=== PATIENT | male | born 1960 | race Two or more races ===

== ENCOUNTER 2017-05-02 16:08 | Inpatient (IN) | payer BC ==
[2017-05-02] MEDS ORDERED: Dexamethasone IV* 4 MG/ML 1 ML (4 MG) IV SLOW PU ONE (17:09)
[2017-05-02] MEDS ORDERED: Metoclopramide IV* 5 MG/ML 2 ML VIAL IV SLOW PU ONE (17:09)
[2017-05-02 17:23] LABS: Hematocrit 47 % (42-52); Hemoglobin 16.4 g/dl (14.0-18.0); Mean Corpuscular HGB Conc 35 g/dl (31-36); Mean Corpuscular Hemoglobin 32 pg (27-31); Mean Corpuscular Volume 92 fL (80-94); Mean Platelet Volume 7 um3 (7.4-10.4); Red Blood Count 5.13 10^6/ul (4.0-5.4); Red Cell Distribution Width 14 % (10.5-15); White Blood Count 8.5 10^3/ul (3.5-10.8)
[2017-05-02 17:46] LABS: BUN/Creatinine Ratio 17.2 (8-20); Calcium 9.9 mg/dL (8.6-10.3); EGFR African American 107.3 (>60); EGFR Non-African American 83.5 (>60); Potassium 3.2 mmol/L (3.5-5.0)
[2017-05-02] MEDS ORDERED: traMADol TAB* 50 MG PO PRN (18:31)
[2017-05-02] MEDS ORDERED: Ondansetron INJ* 2 MG/ML VIAL IV PRN (18:44)
[2017-05-02] MEDS ORDERED: hydrALAZINE IV* 20 MG/ML VIAL IV SLOW PU PRN (18:48)
--- NOTE | 2017-05-02 19:06 | RAD ---
Indication: Brain mass. CT of the brain was performed without IV contrast. Ventricular structures are shifted towards the left. Extensive vasogenic edema arising from a mass in the right temporal lobe is noted. This mass in the right frontal temporal lobe which was described previously as a hemorrhagic lesion and demonstrates a fluid fluid level with high density material in the dependent portion is noted. Extensive vasogenic edema is noted. Previous MRI demonstrates multiple enhancing lesions in the cerebellum well. Mastoid air cells and paranasal sinuses are unremarkable. IMPRESSION: Large ring-enhancing lesion with low density fluid fluid level in the right temporoparietal lobe which was present previously. Midline shift towards the left is noted extensive vasogenic edema. On the prior MRI multiple enhancing lesions are present suggestive of metastatic disease. Infectious etiology is considered less likely. There is likely hemorrhage with fluid/fluid level in the right temporal frontal lobe lesion.
[2017-05-02] MEDS ORDERED: Potassium Chlor TAB* 20 MEQ TAB.ER PO ONE (19:44)
[2017-05-02 19:55] LABS: Albumin 4.5 g/dL (3.2-5.2); Globulin 3.4 g/dL (2-4); Total Bilirubin 1.2 mg/dL (0.2-1.0); Total Protein 7.9 g/dL (6.4-8.9)
[2017-05-02] MEDS ORDERED: Iohexol 300* (CONTRAST) 10 ML SDV IV ONE (20:06)
--- NOTE | 2017-05-02 20:43 | RAD ---
Indication: Brain metastases lesion, evaluate for primary cancer. Contrast: Administered 119.0 ml of OMNIPAQUE 300 mg/ml CT of the chest, abdomen and pelvis was performed after oral and IV contrast administration. Coronal and sagittal reconstructed images were obtained. The inferior thyroid lobes are unremarkable. No mediastinal or hilar adenopathy is noted. Heart demonstrates no pericardial effusion. The trachea and major bronchi demonstrates an endobronchial lesion in the right lower lobe bronchus. There is suggestion of a mass encroaching into the right lower lobe bronchus measuring approximately 2.7 cm. Atelectasis of the right lower lobe is also present. There are small nodules present in the right upper lobe at least 2 lesions measuring 5 mm and 4 mm. Nodule in the right middle lobe measuring 4 mm. Other minute middle lobe lesion measures 5 mm. Small multiple lingula lesions are noted measuring at least 4 mm. Other smaller 2-3 mm lesions are noted in the left lower lobe. Largest lesion in the left lower lobe measures approximately 5 mm. These lesions are suspicious for metastatic disease. No significant mediastinal or hilar adenopathy is noted. The heart demonstrates no pericardial effusion. No axillary adenopathy is noted. CT of the abdomen and pelvis was performed after oral and IV contrast administration. Liver is normal in size. No focal lesions or intrahepatic duct dilatation is noted. The gallbladder demonstrates no calcified gallstones. No pericholecystic fluid or wall thickening is identified. The spleen is normal in size. Common duct is not dilated. No adrenal lesions are noted. The kidneys demonstrate symmetric nephrograms without focal lesions. No retroperitoneal lymphadenopathy is noted. The pancreas demonstrates no mass or pancreatic duct dilatation. No dilated loops of bowel are noted. Aorta demonstrates atherosclerosis without evidence of retroperitoneal adenopathy. No aneurysmal dilatation is noted. CT of the pelvis demonstrates no evidence of bowel obstruction. No pelvic adenopathy is noted. Urinary bladder is otherwise unremarkable. The bony structures demonstrates increased density in the T12 vertebral bodies suspicious for metastatic disease. IMPRESSION: CT OF THE CHEST DEMONSTRATES A CENTRAL RIGHT LOWER LOBE MASS NARROWING THE RIGHT LOWER LOBE BRONCHUS WITH POSTOBSTRUCTIVE ATELECTASIS. ADDITIONALLY THERE ARE MULTIPLE SMALL 2 TO 3 MM NODULES IN BOTH LUNG BASES WITH SEVERAL NODULES MEASURING UP TO 5 MM. THESE ARE SUSPICIOUS FOR METASTATIC DISEASE. CT OF THE ABDOMEN AND PELVIS DEMONSTRATES NO EVIDENCE OF ABNORMAL MASSES OR FLUID COLLECTION ALTHOUGH THERE IS SCLEROSIS OF THE T12 VERTEBRA FOR WHICH METASTATIC DISEASE CANNOT BE EXCLUDED.
[2017-05-02] MEDS ORDERED: Labetalol IV* 5 MG/ML 20 ML VIAL IV PUSH PRN (20:55)
[2017-05-02] MEDS: Metoprolol Succinate XL TAB* 100 MG PO SCH (20:59)
[2017-05-02] MEDS: traMADol TAB* 50 MG PO PRN (21:28)
--- NOTE | 2017-05-03 00:18 | HP ---
CC: Dr. Connolly* MEDICINE HISTORY AND PHYSICAL: DATE OF ADMISSION: 05/02/17 PROVIDER: Nati Hastings NP ATTENDING PHYSICIAN: Dr. Obinna Drake * (as dictated by Nati Hastings NP) CONSULTING PHYSICIANS: 1. Dr. Yue Vargas, Oncology. 2. Dr. Arnold Dobson, Neurosurgery. PRIMARY CARE PROVIDER: Dr. Connolly. CHIEF COMPLAINT: Referred to ED for MRI with concern for brain lesion. HISTORY OF PRESENT ILLNESS: Mr. Wills is a 57-year-old male patient who is referred to the ER after an outpatient MRI done on 05/01/17, showed concern for multiple enhancing lesions of the cerebral hemispheres bilaterally and of the cerebellum as well as within the choroid plexus on the left. It appears it was most suggestive of metastatic disease. The patient has accompanying vasogenic edema with minimal subfalcine shift and a partially hemorrhagic lesion. Mr. Wills was initially sent for the MRI by Dr. Rodriguez, who is an trash collector at [place], [place]. The patient reportedly was in [place] during the month of March for approximately 2 weeks. When he came home from [place], he noticed that he had a bubble in the right lateral aspect of his eye, he went to see Dr. Grimaldo here in [place], who was able to examine the patient and then referred him to an trash collector for further evaluation. Dr. Rodriguez saw the patient and ordered blood work as well as an MRI. The results are called in to the patient today and he was sent to his PCP's office at [place], who then referred him to the ER. The patient has a conglomeration of symptoms, which includes headache most significantly. He has noticed to have the headache for approximately 3 to 4 weeks now. The headache starts behind the right eye, it is intermittent, is described as shooting pain along the right side of the head. The pain worsens when the patient is lying down. He has been treating the pain with tramadol and ibuprofen. Here in the ER, the patient reports some mild head pain that has returned. The patient also endorses generalized fatigue over the past several months as well as complains of right knee pain that comes and goes that he relates back to his work. The patient works at a [employer] and stands on his legs for a good portion of the day. The patient does endorse dizziness and generalized weakness. On occasion, he denies any recent fever, chills, cold or flu like symptoms. He denies any chest pain, edema, trouble breathing, cough. He denies abdominal pain, nausea, vomiting, diarrhea. He denies any focal weakness, although he does have loss of visual field to the right periphery. Of note, the patient primarily speaks Hungarian, although he does understand some Telugu. The patient's son has helped to translate per the patient's request. PAST MEDICAL HISTORY: Includes: 1. Hypertension. 2. Hyperlipidemia. HOME MEDICATIONS: 1. Tramadol 50 mg q.6 hours p.r.n. 2. Hydrochlorothiazide 12.5 mg daily. 3. Atorvastatin 40 mg daily. 4. Amlodipine 10 mg daily. 5. Metoprolol succinate XL 100 mg b.i.d. 6. Lansoprazole 30 mg daily. ALLERGIES: No known allergies. FAMILY HISTORY: The patient reports a familial history of high cholesterol. He has 2 maternal aunts with a history of stomach cancer as well as a sister with stomach cancer. He reports multiple family members with liver cirrhosis and liver issues as well as an uncle with lung cancer. SOCIAL HISTORY: The patient is a former smoker. Family reports almost daily alcohol use. The patient may have a few beers a day. He works at [employer]. He is . He has children. His dfqtfiyt-wr-ghi, Debra Wills, is his healthcare proxy. REVIEW OF SYSTEMS: As per HPI, all those not mentioned are negative. PHYSICAL EXAMINATION GENERAL: Mr. Wills is a well-developed, well-nourished male patient, who is sitting in ED stretcher, in no acute distress. VITAL SIGNS: Temperature 97.5, heart rate 110, respiratory rate 16, blood pressure 155/99, and O2 saturation 97% on room air. HEENT: Head is atraumatic, normocephalic. Face is symmetrical. Pupils are equal, round, and reactive to light. There is a soft tissue mass on the lateral lower conjunctiva of the right eye. Extraocular movements are intact. Oral mucosa appears moist. There is no oropharyngeal erythema or exudate. NECK: Supple. No lymphadenopathy appreciated. No JVD noted. Neck has full range of motion. RESPIRATORY: Lungs are clear to auscultation. There is no accessory muscle use. CARDIAC: S1, S2 heart sounds, regular rate and rhythm. No murmurs, rubs, or gallops. The patient has no peripheral edema. Distal pulses are 2+ and symmetrical in upper and lower extremities. ABDOMEN: Soft, nontender, nondistended. Bowel sounds are present. MUSCULOSKELETAL: There is no clubbing or cyanosis. The patient is moving all extremities and appears to have full range of motion. NEURO: The patient has limited vision with peripheral testing on the right eye. Cranial nerves II through XII are otherwise intact. The patient moves all extremities. There is no pronator drift. The patient is able to perform finger -to- nose and aotwlj-ud-nwgdyp activities. He is able to perform rapid motion. There is no pronator drift noted in the lower extremities. The patient is able to perform ejzl-wl-sajd. The patient is able to stand without difficulty, but does report that he does get unsteady with his gait, which I did not observe on my quick assessment. PSYCH: He is alert and oriented x3. Affect is appropriate. SKIN: Limited assessment, but appears grossly intact. DIAGNOSTIC STUDIES/LAB DATA: CBC: WBC 8.5, hemoglobin 16.4, hematocrit 47, platelet count 375. BMP: Sodium 133, potassium 3.2, chloride 98, carbon dioxide 26, BUN 16, creatinine 0.93, glucose 108, calcium 9.9. CT of the brain, impression: Large ring enhancing lesion with low-density fluid level in the right temporoparietal lobe, which was present previously. Midline shift towards the left, noted extensive vasogenic edema. On the prior MRI, multiple enhancing lesions are present suggestive of metastatic disease. Infectious etiology is considered less likely. There is likely hemorrhage with fluid level on the right temporal frontal lobe lesion. The patient's MRI from 05/01/17 done as an outpatient, impression: 1. Multiple enhancing lesions of the cerebral hemispheres bilaterally and of the cerebellum as well as within the choroid plexus on the left. The appearance is most suggestive of metastatic disease. 2. The largest lesion is noted within the right frontoparietal region measuring up to 3.6 cm in size with vasogenic edema and minimal subfalcine shift to the left. This lesion is partially hemorrhagic. 3. There is non-enhancing soft tissue within the right globe. While this may relate to retinal or choroidal hemorrhage, given the presence of neoplasm elsewhere, metastatic disease of primary retinal neoplasm is also within the differential. ASSESSMENT AND PLAN: Mr. Wills is a 57-year-old male patient, who presents today with multiple brain lesions that are concerning for metastatic disease. He will be admitted to the hospital under the medicine service. The plan is as follows: 1. Brain lesions seen on MRI with concern for neoplasm. Admit to telemetry for further monitoring. The patient will be monitored in the ICU in order to have available telemetry monitored bed. Neurologically, he is stable except for occasional complaints of headache. I have discussed the patient with Dr. Vargas and Dr. Dobson, who will both see the patient tomorrow. We will continue with neurological checks. Additionally, I have ordered a CT of the chest, abdomen, and pelvis in order to nguyễn-scan the patient for any other potential sites of neoplasm. The patient does have this lesion to the right eye ; this may represent a retinal neoplasm or an ocular melanoma. I have placed a computer consult to Dr. Tobias of Pathology and our team will call her in the morning in order to see if she can obtain a sample from the lesion in the patient's right eye for further testing as this may be the patient's primary source. Given that the patient has evidence of vasogenic edema as well as some mild midline shift and mild hemorrhage, we will keep his systolic blood pressure at or below 140 in the presence of acute hemorrhage. Additionally, he has been started on Decadron with his first dose given in the ED. He will be continued on Decadron 4 mg IV q.6 hours. 2. Hypokalemia. This is likely secondary to the patient's hydrochlorothiazide use, we will replete and recheck in the morning. 3. Headache. This is secondary to the patient's brain lesions. Continue home tramadol as this is effective for the patient's headache. 4. History of hypertension. Continue home medications of hydrochlorothiazide, amlodipine, and metoprolol succinate XL. 5. History of hyperlipidemia. Continue atorvastatin. 6. History of gastroesophageal reflux disease. Continue his omeprazole. 7. FEN. The patient is ordered a heart healthy diet. 8. DVT prophylaxis. Anticoagulation is contraindicated in the presence of acute hemorrhage in the brain. He is ordered SCDs. 9. Code status. The patient is a full code. 10. Disposition. Admit as an inpatient to medicine service. Discharge to home when medically stable. TIME SPENT: Time spent on this admission was approximately 65 minutes, more than half the time was spent [id number] with the patient and family obtaining history and physical, performing physical examination, and reviewing the plan of care. Plan of care was also discussed with attending, Dr. Drake, who is in agreement. NATI HASTINGS, [employer] [id number]/CPS #: [id number] JAY
[2017-05-03] MEDS: Dexamethasone IV* 4 MG/ML 1 ML (4 MG) IV SLOW PU SCH ×3 (01:02→11:45)
[2017-05-03 06:44] LABS: Hematocrit 48 % (42-52); Hemoglobin 16.5 g/dl (14.0-18.0); Mean Corpuscular HGB Conc 34 g/dl (31-36); Mean Corpuscular Hemoglobin 32 pg (27-31); Mean Corpuscular Volume 92 fL (80-94); Mean Platelet Volume 8 um3 (7.4-10.4); Red Blood Count 5.21 10^6/ul (4.0-5.4); Red Cell Distribution Width 14 % (10.5-15); White Blood Count 7.9 10^3/ul (3.5-10.8)
[2017-05-03 06:54] LABS: BUN/Creatinine Ratio 23.1 (8-20); Calcium 9.8 mg/dL (8.6-10.3); EGFR African American 131.5 (>60); EGFR Non-African American 102.2 (>60); Potassium 3.6 mmol/L (3.5-5.0)
[2017-05-03] MEDS: traMADol TAB* 50 MG PO PRN (07:13)
[2017-05-03] MEDS ORDERED: Omeprazole CAP* 20 MG PO SCH (07:30)
--- NOTE | 2017-05-03 07:49 | PN ---
Progress Note - Progress Note Date of Service: 05/03/17 SOAP: Subjective: []Patient with recent visual complaints, headaches. Sent for MRI yesterday that showed multiple intracranial metastases.Pateint currently in ICU. Complains of mild headache.No nausea,vomiting or seizure activity.CT of C/A/P last night showed mass in chest with metastatic disease.Hx of smoking in past. Has soft tissue lesion in lateral aspect of right eye which has apparently responded to steroids. Objective: []C/O headache Neuro intact except possible field cut difficult to evaluate Assessment: []Metastatic Lung Carcinoma w brain mets Plan: [] Suspect tissue from lung mass will be diagnostic Can remove larger of intracranial lesions if tissue from brain becomes needed. Will follow with you. Thanks
--- NOTE | 2017-05-03 07:56 | PN ---
Subjective Date of Service: 05/03/17 Interval History: HOSPITALIST PROGRESS NOTE Patient seen and examined at bedside. He feels better this AM. Headache is less intense and right eye lesion has shrunk considerably. Family History: Unchanged from Admission Social History: Unchanged from Admission Past Medical History: Unchanged from Admission Objective Active Medications: Acetaminophen (Tylenol Tab*) 650 mg PO Q4H PRN PRN Reason: FEVER/PAIN Amlodipine Besylate (Norvasc Tab*) 10 mg PO DAILY [facility] Atorvastatin Calcium (Lipitor*) 40 mg PO DAILY [facility] Dexamethasone Sodium Phosphate (Decadron Iv*) 4 mg IV SLOW PU Q6H [facility] Last Admin: 05/03/17 06:18 Dose: 4 mg Hydrochlorothiazide (Hydrodiuril Tab*) 12.5 mg PO DAILY [facility] Labetalol HCl (Trandate Iv*) 10 mg IV PUSH Q6H PRN PRN Reason: BLOOD PRESSURE Levetiracetam (Keppra Tab*) 500 mg PO BID [facility] Metoprolol Succinate (Toprol Xl Tab*) 100 mg PO BID [facility] Last Admin: 05/02/17 20:59 Dose: 100 mg Omeprazole (Prilosec Cap*) 20 mg PO DAILY@0730 [facility] PRN Reason: Protocol Ondansetron HCl (Zofran Inj*) 4 mg IV Q6H PRN PRN Reason: NAUSEA Potassium Chloride (Klor Con Er Tab*) 10 meq PO BID [facility] Tramadol HCl (Ultram*) 100 mg PO Q6H PRN PRN Reason: PAIN - MODERATE TO SEVERE Last Admin: 05/03/17 07:13 Dose: 100 mg Tramadol HCl (Ultram*) 50 mg PO Q6H PRN PRN Reason: PAIN - MILD TO MODERATE Vital Signs 05/03/17 05/03/17 05/03/17 06:01 06:15 06:32 Temperature Pulse Rate 78 81 79 Respiratory 11 15 14 Rate Blood Pressure 131/87 130/82 131/87 (mmHg) O2 Sat by Pulse 92 92 92 Oximetry 05/03/17 05/03/17 07:00 07:42 Temperature 98.3 F Pulse Rate Respiratory 16 Rate Blood Pressure (mmHg) O2 Sat by Pulse Oximetry Oxygen Devices in Use Now: None Appearance: Pleasant gentleman lying in bed in NAD. Eyes: No Scleral Icterus, - - Small "lump" on his right lower lid, but much improved as per family Ears/Nose/Mouth/Throat: Mucous Membranes Moist Neck: Trachea Midline Respiratory: Symmetrical Chest Expansion and Respiratory Effort, Clear to Auscultation Cardiovascular: RRR - Normal S1 and S2 Abdominal: NL Sounds; No Tenderness; No Distention Extremities: No Edema Neurological: Alert and Oriented x 3, NL Sensation, NL Muscle Strength and Tone Lines/Tubes/Other Access: Clean, Dry and Intact Peripheral IV Nutrition: Taking PO's Result Diagrams: 05/03/17 06:25 05/03/17 06:25 Assess/Plan/Problems-Billing Assessment: Mr. Wills is a 57yo M with PMH of HTN, HLD, prior h/o tobacco abuse, sent to ED due to abnormal MRI brain, found to have probable metastatic lung CA. - Patient Problems (1) Brain metastasis Comment: - MRI brain showed multiple enhancing lesions of bilateral hemispheres and cerebellum suggestive of metastatic disease. - CT chest/abd/pelvis demonstrates a central right lower lobe mass narrowing the bronchus, also multiple bilateral nodules suggestive of metastasis. T12 sclerosis for which metastatic disease cannot be ruled out. - Neurosurgery input appreciated - add Keppra for seizure prevention. - Pulm consult requested for bronch with biopsy. - Continue neuro checks. - Continue Dexamethasone. - Transfer to medical floor. (2) HTN (hypertension) Comment: - Controlled. - Continue HCTZ, Amlodipine, and Metoprolol. (3) HLD (hyperlipidemia) Comment: - Continue Atorvastatin. (4) DVT prophylaxis Comment: - Pharmacological prophylaxis contraindicated in the setting of multiple brain lesions at risk for bleeding. - SCDs only. (5) Full code status Status and Disposition: Inpatient. Family updated at bedside.
[2017-05-03] MEDS ORDERED: Morphine INJ* 2 MG/ML 1 ML SYRINGE IV PRN (07:57)
[2017-05-03] MEDS ORDERED: levETIRAcetam TAB* 500 MG PO SCH (09:00)
[2017-05-03] MEDS ORDERED: amLODIPine TAB* 5 MG PO SCH (09:00)
[2017-05-03] MEDS ORDERED: Hydrochlorothiazide TAB* 25 MG PO SCH (09:00)
[2017-05-03] MEDS ORDERED: Atorvastatin* 40 MG TAB PO SCH (09:00)
[2017-05-03] MEDS ORDERED: Potassium Chlor TAB* 10 MEQ TAB.ER PO SCH (09:00)
[2017-05-03] MEDS: Metoprolol Succinate XL TAB* 100 MG PO SCH (09:08)
[2017-05-03] MEDS: Acetaminophen TAB* 325 MG PO PRN ×2 (09:39→12:56)
[2017-05-03 15:57] VITALS: BP 120/86
--- NOTE | 2017-05-03 16:04 | RAD ---
Indication: Right temporofrontal brain mass. CT of the brain was performed without IV contrast. Again noted is a right temporal frontal lobe mass with vasogenic edema. Study is being performed for radiation therapy planning. IMPRESSION: CT of the brain performed for radiation therapy planning.
--- NOTE | 2017-05-04 00:02 | CONS ---
PULMONARY CONSULTATION REPORT: DATE OF CONSULT: 05/03/17 CONSULTATION REQUESTED BY: Dr. Fitzpatrick. REASON FOR CONSULT: Evaluation of abnormal CT chest. HISTORY OF PRESENT ILLNESS: The patient is a 57-year-old male, who was referred after an abnormal MRI done on 05/01/17. The patient returned from [place] 2 weeks ago, was noticing a bubble in the right lateral aspect of eye and went to see stamp pad finisher, who ordered blood work and an MRI. The patient was noted to have multiple enhancing lesions in the cerebral hemispheres and in the cerebellum and choroid plexus on the left. The patient was sent by his primary care physician to the emergency room for further evaluation. The patient has been having headaches for 3 to 4 weeks. The patient reports headaches behind the right eye, intermittent, associated with shooting pain on the right side of the head which worsens with lying down. The patient has been taking tramadol and ibuprofen for the pain. The patient also reported generalized fatigue over the past several months. The patient denies chest pain or shortness of breath or palpitations. He does report dizziness in addition to generalized weakness. No history of fever, chills, cold or flu- like symptoms. Denies lower extremity swelling, cough, abdominal pain, nausea, vomiting, or diarrhea. No focal weakness other than loss of visual field in the right periphery. The patient was seen and examined at bedside. Pulmonary consultation was requested for evaluation of abnormality noted on CT chest. The patient's nfncnucn-vs-nmd, who is his healthcare proxy, is at bedside and is able to provide much information and much of the history is through her and from review of records. The patient denies any other symptoms currently. PAST MEDICAL HISTORY: 1. Hypertension. 2. Hyperlipidemia. MEDICATIONS: 1. Tramadol 50 mg q.6 hours p.r.n. 2. Hydrochlorothiazide 12.5 mg daily. 3. Atorvastatin 40 mg daily. 4. Amlodipine 10 mg daily. 5. Metoprolol succinate 100 mg b.i.d. 6. Lansoprazole 30 mg daily. ALLERGIES: No known drug allergies. FAMILY HISTORY: High cholesterol. Two maternal aunts with stomach cancer. Sister with stomach cancer. Multiple family members with liver cirrhosis and uncle with lung cancer. SOCIAL HISTORY: Former smoker, alcohol usage. He works at [employer]. His ncvzifvg-og-kpx, Debra Wills, is his healthcare proxy. REVIEW OF SYSTEMS: All systems reviewed and as per HPI. PHYSICAL EXAM: The patient is sitting up in bed, in no apparent distress. Vital Signs: Temperature 98, pulse 88 beats per minute, respiratory rate 18 per minute, O2 sat 96% on room air, blood pressure 137/82. HEENT: Pupils are equal and reactive to light, mucous membranes moist. Neck: Supple. No JVD. Respiratory: Clear to auscultation bilaterally. No accessory muscle usage. Cardiovascular: S1 and S2 present, regular. No murmurs, gallops, or rubs. Abdomen: Soft, nontender, nondistended. Bowel sounds present. Musculoskeletal : No cyanosis or clubbing. Neurological: Alert, awake, and oriented x3. No focal deficits, limited peripheral vision in the right eye. Skin: No rash or bruises. DIAGNOSTIC STUDIES/LAB DATA: WBC count 7.9, hemoglobin 16.5, hematocrit 48, platelet count 386. Sodium 133, potassium 3.6, chloride 100, bicarb 25, BUN 18, creatinine 0.78. MRI showed multiple-enhancing lesions concerning for malignancy. CT of chest, abdomen, and pelvis was personally reviewed by me - evidence of possible endobronchial lesion in the right lower lobe bronchus with mass encroaching into the right lower lobe bronchus measuring 2.7 cm with atelectasis of right lower lobe. Small nodules present in right upper lobe, 2 lesions measuring 5 mm and 4 mm, and nodule in the right middle lobe measuring 4 mm. Other subcentimeter pulmonary nodules are also found on the left lung. No significant mediastinal or hilar adenopathy noted. IMPRESSION AND RECOMMENDATIONS: 57-year-old male, former smoker, with alcohol abuse, admitted with abnormal MRI, showing multiple-enhancing lesions concerning for metastatic disease with primary lung involvement given the possibility of right lower lobe endobronchial lesion. The patient was started on steroids for brain edema. The patient to undergo radiation therapy Considering the risks and benefits associated with obtaining the diagnosis, bronchoscopy seems to be minimally invasive and with less risk compared to removal of a brain lesion. Will schedule the patient for bronchoscopy on Saturday at 11 a.m. Procedure was discussed in detail with the patient. Associated risks and benefits were thoroughly explained with the help of the patient's [id number], who is able to interpret for the patient. The patient is agreeable to the procedure. If unable to obtain diagnosis through bronchoscopy, will schedule for CT-guided biopsy. Above recommendations were discussed with Dr. Harmon and Dr. Fitzpatrick. The patient can be discharged from pulmonary perspective to have procedure scheduled as out pt. once diagnosis could be made. Thank you for allowing me to participate in the care of your patient. Will follow up with you. [id number]/CPS #: [id number] MTDD
--- NOTE | 2017-05-04 06:33 | DS ---
CC: Dr. Connolly; Dr. Ozzie Harmon; Dr. Dobson; Dr. Steve DISCHARGE SUMMARY: DATE OF ADMISSION: 05/02/17 DATE OF DISCHARGE: 05/03/17 PRIMARY CARE PROVIDER: Dr. Connolly. CONSULTING ONCOLOGIST: Dr. Ozzie Harmon. CONSULTING NEUROSURGEON: Dr. Dobson. CONSULTING HELPER [employer]: Dr. Steve. DISCHARGE DIAGNOSIS: Lung carcinoma with probable brain metastases. SECONDARY DIAGNOSES: 1. Hypertension. 2. Hyperlipidemia. MEDICATION LIST: 1. Hydrochlorothiazide 12.5 mg p.o. daily. 2. Atorvastatin 40 mg p.o. daily. 3. Amlodipine 10 mg p.o. daily. 4. Metoprolol succinate 100 mg p.o. b.i.d. 5. Lansoprazole 30 mg p.o. daily. New Medications: 1. Dexamethasone 4 mg p.o. q.6 hours. 2. Keppra 500 mg p.o. b.i.d. 3. Oxycodone 5 mg p.o. q.8 hours p.r.n. pain, MDD 3 tablets, dispensed 30, no refills. [facility] Prescription Monitoring was consulted and the patient last received a prescriptio n for tramadol on 04/21/17. Tramadol was discontinued as it can lower the seizure threshold. HOSPITAL COURSE: Mr. Wills is a 57-year-old male with a past medical history as stated above who wa s referred to the emergency room due to abnormal outpatient MRI. The patient has had headaches inter mittently since March and developed a lesion in the right eye. He was seen by an manager psychology in [place] and referred for an MRI of the brain that showed multiple enhancing lesions of the cerebral hemispheres bilaterally and he was sent to the emergency room for further evaluation. For more det ails about his presentation, I refer you to his history and physical. The patient was admitted for further workup. CT of the brain without contrast showed large ring-enh ancing lesion with low density fluid level in the right temporoparietal lobe, midline shift to the l eft with extensive vasogenic edema. CT of the chest, abdomen and pelvis showed the central right lower lobe mass narrowing the right low er lobe bronchus with postobstructive atelectasis. Additionally, there are multiple small 2 to 3 mm nodules in both lung bases with several nodules measuring up to 5 mm suspicious for metastatic disea se. There is also sclerosis of the T12 vertebrae for which metastatic disease cannot be excluded. The patient was seen in consultation by Neurosurgery (Dr. Dobson) and his impression is the patient likely has metastatic lung carcinoma with brain mets. He recommended pulmonary evaluation as he fe els the lung mass will be diagnostic. In the future, the larger intracranial lesion can be removed if it becomes needed. The patient was seen in consultation by Oncology (Dr. Harmon) and he was in agreement that the patien t needs a bronchoscopy for tissue diagnosis. He will also contact Dr. Santana to start planning the patient's radiation therapy. The patient was also see by Dr. Steve and the plan is for him to have bronchoscopy as outpatient on 05/07/17. At this point, the patient is asymptomatic with resolution of his headache and no neurological defic its. Neurosurgeon recommended starting dexamethasone for his vasogenic edema and to add Keppra for seizure prophylaxis. Patient's tramadol was discontinued as this can lower his seizure threshold an d he received a prescription for oxycodone for pain management at home. He is medically stable to be discharged home today to return on 05/07/17 for his bronchoscopy and th en he will follow up with Dr. Harmon for further therapy planning. PHYSICAL EXAMINATION: Vital Signs: Temperature 97.6, heart rate is 80, respiratory rate is 16, oxy gen saturation 95% on room air, blood pressure is 120/86. General: The patient is a pleasant, midd le-aged male, lying in bed, in no acute distress. CVS: Normal S1, S2. Regular rate and rhythm. C hest: Breath sounds present bilaterally with no added sounds. Extremities: No edema. Neuro: He i s alert, awake, and oriented x3. Able to move all [address] Dobson questioned if the patient has a possible visual field cut but it was difficult to evalua te. DIET: Heart-healthy diet. ACTIVITIES: As tolerated. DISPOSITION: To home. STATUS WHILE IN THE HOSPITAL: Observation. Please keep in mind, this is a summarized version of this patient's hospital stay. If you need more information, please feel free to call me at [phone] or please obtain full medical records. TIME SEEN: Approximately 45 minutes was spent to complete this discharge. [id number]/[facility] #: [id number]
--- NOTE | 2017-05-04 06:41 | RADMED ---
RADIATION ONCOLOGY INPATIENT CONSULTATION NOTE: DATE OF CONSULT: 05/03/17 - ROOM #422 HISTORY OF PRESENT ILLNESS: Mr. Wills is a 57-year-old gentleman, who had problems with his vision as well headache, brought to medical attention prompting ophthalmology evaluation. That led to MRI scan of the brain performed 05/01/17 showing multiple enhancing lesions throughout the cerebral hemispheres and cerebellum with a dominant lesion in the right frontoparietal region measuring up to 3.6 cm with significant vasogenic edema. He was admitted to the hospital. He had a CT of the chest, abdomen, and pelvis performed 05/02/17, identifies right lower lobe mass with atelectasis and multiple bilateral pulmonary nodules as well as sclerotic lesion in the thoracic spine. He has been placed on dexamethasone and undergoing pain management, and is managing reasonably well. A visible lesion at the outer canthus of the right eye apparently resolved since initiating steroids. He has planned for bronchoscopy with biopsy and is referred with suspicion for lung cancer and brain metastases for discussion of palliative whole brain radiation therapy. PAST MEDICAL HISTORY: Hypertension and hyperlipidemia. MEDICATIONS: As per the inpatient record, includes dexamethasone. ALLERGIES: No known drug allergies. FAMILY HISTORY: Significant for his sister with stomach cancer and multiple more distant relatives on his mother's side who have had cancer. SOCIAL HISTORY: He is a former smoker, having quit in the distant past. He is accompanied by his son and [id number], who are quite supportive. He does drink alcohol regularly. He has worked in the paper industry and is concerned about potential environmental exposures to that work. REVIEW OF SYSTEMS: As in the history of present illness, otherwise a complete review of systems is obtained from the patient, negative for additional significant findings. PHYSICAL EXAM: Vital Signs: As per the electronic medical record. General: He is awake, alert, and oriented, in no acute distress. Normocephalic and atraumatic. Sclerae are anicteric. Neck is supple, full range of motion. Midline trachea, no masses palpable in the neck or thyroid. Lungs with symmetric air entry bilaterally. Cardiovascular: S1 and S2, regular rate and rhythm. Abdomen: Soft and nontender. No masses, no organomegaly. Extremities : No cyanosis, clubbing, or edema. Neurologic: Cranial nerves II through XII are intact. Strength is symmetric in proximal and distal muscle groups in the upper and lower extremities. Gait balance and coordination are mildly unsteady and wide based but ambulatory without assistance. No drift. Negative Romberg. RADIOLOGY: Reviewed as in the history of present illness. ASSESSMENT AND PLAN: Mr. Wills is a 57-year-old with symptoms and radiographic findings concerning for multiple brain metastases potentially with underlying lung primary. He has been referred for consideration of bronchoscopy for diagnosis. I did review his history as well as the radiographic findings, and discussed at some length with the patient and his family, as they are already well-informed and family. We reviewed the natural history of brain metastases suspected in relation to lung cancer, they understand the uncertainty of discussing the situation before a definitive diagnosis is made. With regard to management of brain metastases, I explained the logistics and rationale for palliative whole brain radiation therapy, risks, benefits, and alternatives as well as acute and long-term frequent and uncommon toxicities. We also discussed radiosurgery boost depending on response to treatment. We discussed systemic therapy following brain metastases management, and also discussed foregoing active cancer therapy if there were palliative care and hospice. I did answer their questions to the best of my ability. Tentatively, he is inclined to plan to proceed with whole brain radiation therapy as his workup continues, assuming biopsy- proven cancer is found. He did sign informed consent and will undergo a CT simulation in order for us to be prepared to initiate treatment at the earliest interval next week. His bronchoscopy is tentatively planned for 05/07/17. Thank you for giving me the opportunity to participate in the care of this very pleasant patient. [id number]/[facility] #: [id number] JAY
--- NOTE | 2017-05-04 21:38 | ED ---
Robb Galaviz Benjamin, scribed for Alexx Florian MD on 05/02/17 at 1737 . Neurological HPI - HPI Summary HPI Summary: 57yo male c/o right eye swelling and intermittent pain today. Pt was sent to ED by his PCP after he called and described his symptoms. Pt has Pt also reports fight frontal VINSON and right eye visual problems. Pt started having dizziness, leg pain, and abdominal pain. Upon follow up, pt was dxed with right brain cancer. Pt had a MRI done yesterday. Per [id number], pt has been losing weight as well. - History of Current Complaint Chief Complaint: EDHeadache Stated Complaint: SWELLING/PAIN IN HEAD Time Seen by Provider: 05/02/17 16:53 Hx Obtained From: Patient, Family/Car Whacker - [id number] Onset/Duration: Gradual Onset, Started weeks ago Timing: Constant Onset Severity: Moderate Current Severity: Moderate Headache Location: Frontal - right frontal VINSON Pain Intensity: 2 Pain Scale Used: 0-10 Numeric Character: Dizzy, Visual Changes - right eye - Allergy/Home Medications Allergies/Adverse Reactions: Allergies Allergy/AdvReac Type Severity Reaction Status Date / Time No Known Allergies Allergy Verified 04/29/17 09:38 Home Medications: Home Medications Atorvastatin* [Lipitor 40 MG*] 40 mg PO DAILY 05/02/17 [History Confirmed ] Hydrochlorothiazide TAB* [Hydrodiuril TAB*] 12.5 mg PO DAILY 05/02/17 [History Confirmed 05/02/17] Lansoprazole CAP (NF) [Prevacid CAP (NF)] 30 mg PO DAILY 05/02/17 [History Confirmed 05/02/17] Metoprolol Succinate XL TAB* [Toprol XL TAB*] 100 mg PO BID 05/02/17 [History Confirmed 05/02/17] amLODIPine TAB* [Norvasc 5 mg TAB*] 10 mg PO DAILY 05/02/17 [History Confirmed 05/02/17] PMH/Surg Hx/FS Hx/Imm Hx Endocrine/Hematology History: Denies: Hx Diabetes Cardiovascular History: Denies: Hx Hypertension, Hx Pacemaker/ICD History: Denies: Hx Renal Disease Sensory History: Denies: Hx Hearing Aid Psychiatric History: Denies: Hx Panic Disorder Infectious Disease History: No Infectious Disease History: Denies: Traveled Outside the [place] in Last 30 Days - Family History Known Family History: Positive: Hypertension - Social History Occupation: Employed Full-time Lives: Alone Alcohol Use: Daily Alcohol Amount: few beers a day Substance Use Type: Reports: None Smoking Status (MU): Former Smoker Review of Systems Constitutional: Negative Negative: Fever, Chills Positive: Other - right vision partially impaired ENT: Negative Cardiovascular: Negative Negative: Chest Pain Respiratory: Negative Negative: Shortness Of Breath Gastrointestinal: Negative Negative: Abdominal Pain Genitourinary: Negative Musculoskeletal: Negative Negative: Arthralgia, Myalgia Skin: Negative Positive: Headache - right frontal VINSON Psychological: Normal Negative: Anxious, Depressed All Other Systems Reviewed And Are Negative: Yes Physical Exam Triage Information Reviewed: Yes Vital Signs On Initial Exam: Initial Vitals Temp Pulse Resp BP Pulse Ox 97.5 F 75 16 129/96 97 05/02/17 16:11 05/02/17 16:11 05/02/17 16:11 05/02/17 16:11 05/02/17 16:11 Vital Signs Reviewed: Yes Appearance: Positive: Well-Appearing, No Pain Distress, Well-Nourished Skin: Positive: Warm, Dry Head/Face: Positive: Normal Head/Face Inspection Eyes: Positive: Other: - Soft tissue mass on lower conjunctiva of the right eye ENT: Positive: Hearing grossly normal, Pharynx normal Neck: Positive: Supple, Nontender, No Lymphadenopathy. Negative: Nuchal Rigidity Respiratory/Lung Sounds: Positive: Clear to Auscultation, Breath Sounds Present. Negative: Rales, Tracheal Deviation, Wheezes Cardiovascular: Positive: RRR, Pulses are Symmetrical in both Upper and Lower Extremities. Negative: Murmur, Leg Edema Left, Leg Edema Right Abdomen Description: Positive: Nontender, Soft. Negative: Distended, Guarding Bowel Sounds: Positive: Present Musculoskeletal: Positive: Strength/ROM Intact Neurological: Positive: Sensory/Motor Intact, Alert, Oriented to Person Place, Time, Other - Right eye's right visual field is cut. - [place] Coma Scale Coma Scale Total: 15 Diagnostics - Vital Signs Vital Signs Temp Pulse Resp BP Pulse Ox 05/02/17 17:21 98.4 F 96 12 149/102 94 05/02/17 17:20 149/102 05/02/17 16:11 97.5 F 75 16 129/96 97 - Laboratory Lab Results: Lab Results 05/02/17 Range/Units 17:14 WBC 8.5 (3.5-10.8) 10^3/ul RBC 5.13 (4.0-5.4) 10^6/ul Hgb 16.4 (14.0-18.0) g/dl Hct 47 (42-52) % MCV 92 (80-94) fL MCH 32 H (27-31) pg MCHC 35 (31-36) g/dl RDW 14 (10.5-15) % Plt Count 375 (150-450) 10^3/ul MPV 7 L (7.4-10.4) um3 Result Diagrams: 05/03/17 06:25 05/03/17 06:25 Lab Statement: Any lab studies that have been ordered have been reviewed, and results considered in the medical decision making process. Course/Dx - Course Course Of Treatment: Reviewed pts medication and allergy lists. Blood pressure noted. Discussed with Dr. Peguero (Neurosurgery) at 17:28. Dr. peguero is aware of the pt. He suggests that pt can stay in [facility] for further workup. No emergent surgery is needed. 17:55 - Dr. Peguero and Dr. Vargas both agree to admit the pt. and Sam both agree to agre for admit. 1755. Dr. Vargas recommends around the clock decadron. Discussed with Dr. Drake ( Hospitalist) at 18:02 - Diagnoses Provider Diagnoses: Brain mass Discharge - Discharge Plan Condition: Fair Disposition: HOME The documentation as recorded by the Robb ken Benjamin accurately reflects the service I personally performed and the decisions made by me, Alexx Florian MD.
== END 2017-05-03 15:50 | disposition home or self-care (01) | DRG 41 ==
LOC: ED 16:08 → ICU 18:12 → MED 05-03 07:57
PROVIDERS: ADMIT Hospitalist; ATTEND Internal Medicine
DX: C79.31 Secondary malignant neoplasm of brain (principal); G93.6 Cerebral edema; J98.11 Atelectasis; C34.31 Malignant neoplasm of lower lobe, right bronchus or lung; I10 Essential (primary) hypertension; E78.5 Hyperlipidemia, unspecified; E87.6 Hypokalemia; R51 Headache; K21.9 Gastro-esophageal reflux disease without esophagitis; R40.2412 Glasgow coma scale score 13-15, at arrival to emergency department; H57.8 Other specified disorders of eye and adnexa; F10.10 Alcohol abuse, uncomplicated; R91.8 Other nonspecific abnormal finding of lung field; M89.9 Disorder of bone, unspecified; Z80.1 Family history of malignant neoplasm of trachea, bronchus and lung; Z80.0 Family history of malignant neoplasm of digestive organs; Z83.49 Family history of other endocrine, nutritional and metabolic diseases; Z83.79 Family history of other diseases of the digestive system; Z87.891 Personal history of nicotine dependence; Z82.49 Family history of ischemic heart disease and other diseases of the circulatory system
CPT/HCPCS: 36415; 70450; 71260; 74177; 77014; 80048; 80053; 83735; 85025; 85027; 87641; A9270-GY; J1100; J2765; Q9967

== ENCOUNTER 2017-05-07 09:30 | Day surgery (SDC) | payer BC ==
[2017-05-07] MEDS ORDERED: Propofol* 10 MG/ML 20 ML BTL IV PUSH ONE (10:17)
[2017-05-07] MEDS ORDERED: fentaNYL* 50 MCG/ML 2 ML VIAL (100 MCG VIAL) ONE (10:18)
[2017-05-07] MEDS ORDERED: Midazolam* 1 MG/ML 5 ML VIAL (5 MG) ONE (10:18)
[2017-05-07] MEDS ORDERED: Atracurium* 10 MG/ML 10 ML VIAL ONE (10:18)
[2017-05-07] MEDS ORDERED: levETIRAcetam TAB* 500 MG PO ONE (11:00)
[2017-05-07] MEDS ORDERED: Metoprolol Succinate XL TAB* 100 MG PO ONE (11:00)
[2017-05-07] MEDS ORDERED: Dexamethasone TAB* 4 MG PO ONE (11:00)
[2017-05-07] MEDS ORDERED: Lidocaine 1% INJ* 10 MG/ML 30 ML SDV ONE (11:15)
[2017-05-07] MEDS ORDERED: fentaNYL* 50 MCG/ML 2 ML VIAL (100 MCG VIAL) IV PRN (11:25)
[2017-05-07] MEDS ORDERED: DiMENhydriNATE IV* 50 MG/ML VIAL IV PUSH PRN (11:25)
[2017-05-07] MEDS ORDERED: Ondansetron INJ* 2 MG/ML VIAL IV PRN (11:25)
[2017-05-07] MEDS ORDERED: HYDROmorphone* 1 MG/ML 1 ML SYR IV PRN (11:25)
[2017-05-07] MEDS ORDERED: Glycopyrrolate IV* 0.2 MG/ML 1 ML VIAL ONE ×2 (11:33→11:39)
[2017-05-07] MEDS ORDERED: Neostigmine Methylsulfate* 2 MG/2 ML SYRINGE ONE ×2 (11:33→11:39)
[2017-05-07 12:30] VITALS: BP 116/85
--- NOTE | 2017-05-07 12:51 | OP ---
DATE OF OPERATION: 05/07/17 - [facility] DATE OF : 58 SURGEON: Yoselin Steve MD ANESTHESIOLOGIST: Dr. Sherman. ANESTHESIA: General anesthesia. INDICATION FOR THE PROCEDURE/PREPROCEDURAL DIAGNOSIS: Multiple enhancing lesions noted on recent MRI, lung mass noted on CT chest, to evaluate for malignancy. OPERATIVE PROCEDURE: Bronchoscopy and EBUS. DESCRIPTION OF PROCEDURE: Informed consent was obtained from the patient prior to the procedure after all the risks and benefits were thoroughly explained with the help of program development specialist. The patient was placed supine on the operating room table. The patient was intubated with size 8.5 endotracheal tube. Appropriate time-out was agreed on by attending staff. Flexible Olympus bronchoscope was then inserted through ET tube. No lesions noted in the trachea. Bronchoscope was then advanced to the irma. ET tube positioning was confirmed to be 2 cm about the level of the irma. Bronchoscope was then advanced into left bronchial tube, which was inspected. No endobronchial lesions were noted on the left side. No secretions were noted. Bronchoscope was then advanced into the right bronchial tree, which was then inspected. Right upper lobe bronchus was patent and open. No endobronchial lesions were noted. There was evidence of endobronchial lesion in right intermediate bronchus with near complete occlusion of right lower lobe bronchus. Lesion appeared to be vascular, with no active bleeding. The lesion was within 2 cm from level of irma. Attempt was made to biopsy the lesion with cytology needle. Significant bleeding occurred due larger bore needle and EBUS needle was used for subsequent biopsies. Rapid onsite evaluation revealed bronchial cells. EBUS bronchoscope was then inserted through endotracheal tube and biopsies were obtained with two passes into endobronchial lesions in the right intermediate bronchus. Washings were also obtained. 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 Minimal bleeding was subsequently noted and 2 mL of lidocaine x2 was instilled and bleeding stopped. Endobronchial biopsies were also obtained for additional tissue. The patient was extubated and seen in Recovery in optimal condition. The patient to undergo radiation to the brain lesion today with Dr Santana. [id number]/[facility] #: [id number] [facility]
== END 2017-05-07 13:18 | disposition home or self-care (01) ==
LOC: OR 09:30
PROVIDERS: ATTEND Internal Medicine
DX: C34.31 Malignant neoplasm of lower lobe, right bronchus or lung (principal); I10 Essential (primary) hypertension; Z87.891 Personal history of nicotine dependence; G93.9 Disorder of brain, unspecified
CPT/HCPCS: 88112; 88172; 88173; 88305; 88342; 88360; A9270-GY; J2001; J2250; J2704; J3010; J8540

== ENCOUNTER 2017-06-09 17:44 | Emergency (ER) | payer MEDICAID ==
[2017-06-09] MEDS ORDERED: Aspirin Low Dose CHEW TAB* 81 MG PO ONE (18:14)
--- NOTE | 2017-06-09 19:53 | RAD ---
HISTORY: Right-sided chest pain, cough, colon cancer COMPARISONS: June 07, 2017 VIEWS: 4: Frontal dual-energy and lateral views of the chest. FINDINGS: CARDIOMEDIASTINAL SILHOUETTE: The cardiomediastinal silhouette is normal. SELVIN: The selvin are normal. PLEURA: There is blunting of the right costophrenic angle. LUNG PARENCHYMA: The lung volumes are low. There is a patchy linear opacification of the lung bases bilaterally ABDOMEN: The upper abdomen is clear. There is no subphrenic gas. BONES AND SOFT TISSUES: No bone or soft tissue abnormalities are noted. OTHER: None. IMPRESSION: 1. LOW LUNG VOLUMES. 2. LINEAR ATELECTASIS OF THE LUNG BASES BILATERALLY. 3. SMALL RIGHT PLEURAL EFFUSION
[2017-06-09 20:15] LABS: Hematocrit 41 % (42-52); Hemoglobin 14.2 g/dl (14.0-18.0); Mean Corpuscular HGB Conc 35 g/dl (31-36); Mean Corpuscular Hemoglobin 33 pg (27-31); Mean Corpuscular Volume 95 fL (80-94); Mean Platelet Volume 7 um3 (7.4-10.4); Red Cell Distribution Width 15 % (10.5-15); White Blood Count 8.8 10^3/ul (3.5-10.8)
[2017-06-09 20:19] LABS: Add Diff/Slide Review? Slide Review Added; Comments Flag Yes
[2017-06-09 20:30] LABS: Albumin 3.8 g/dL (3.2-5.2); BUN/Creatinine Ratio 27.7 (8-20); Calcium 9.2 mg/dL (8.6-10.3); EGFR African American 162.3 (>60); EGFR Non-African American 126.2 (>60); Globulin 3.2 g/dL (2-4); Potassium 3.7 mmol/L (3.5-5.0); Total Bilirubin 0.9 mg/dL (0.2-1.0)
[2017-06-09 20:32] LABS: Troponin I 0.01 ng/mL (<0.04)
[2017-06-09 20:35] LABS: Immature Granulocytes 19 % (0-9); Neutrophil % 69 % (38-83); Promyelocytes % 1 %
[2017-06-09 20:36] LABS: Macrocytosis 1+; Polychromasia 1+
[2017-06-09] MEDS ORDERED: Iohexol 350* (CONTRAST) 500 ML MDV IV ONE (21:15)
[2017-06-09] MEDS ORDERED: oxyCODONE TAB* 5 MG TAB PO PRN (23:31)
[2017-06-09] MEDS ORDERED: Enoxaparin(*) 100 MG/ML SYR SUBCUT ONE (23:31)
[2017-06-09] MEDS ORDERED: oxyCODONE/Acetamin 5/325 MG* TAB PO PRN (23:38)
[2017-06-10 00:09] VITALS: BP 130/89
--- NOTE | 2017-06-10 00:18 | ED ---
Matteo Galaviz Rebecca, scribed for Panchito Jacobson on 06/09/17 at 2108 . Shortness of Breath - HPI Summary HPI Summary: Pt is a 57 y/o M who presents to ED c/o R lateral CP and SOB. Guest reports that he has been experiencing SOB for about 1 week and that he woke up yesterday morning with R lateral CP. States that pain is only present upon deep breaths or "moving the wrong way" and when present, pain is severe, ranked 10/ 10. Sx aggravated by deep breaths and movement, alleviated by nothing. Denies rash. Pt currently has stage 4 lung CA and completed radiation last week and will be beginning chemotherapy in 4 days. Pt was referred to the ED by Dr. Harmon. - History of Current Complaint Chief Complaint: EDShortnessOfBreath Time Seen by Provider: 06/09/17 20:49 Hx Obtained From: Patient Onset/Duration: Lasting Weeks - 1 week, Still Present Dyspnea At: Rest Aggrevating Factors: Movement, Deep Breaths Alleviating Factors: Nothing Associated Signs & Symptoms: Chest Pain Unrelated to Cough - With deep breahts or moving the wrong way - Allergy/Home Medications Allergies/Adverse Reactions: Allergies Allergy/AdvReac Type Severity Reaction Status Date / Time No Known Allergies Allergy Verified 06/05/17 15:34 PMH/Surg Hx/FS Hx/Imm Hx Endocrine/Hematology History: Denies: Hx Diabetes Cardiovascular History: Denies: Hx Hypertension, Hx Pacemaker/ICD History: Denies: Hx Renal Disease Sensory History: Denies: Hx Contacts or Glasses, Hx Hearing Aid Opthamlomology History: Denies: Hx Contacts or Glasses Psychiatric History: Denies: Hx Panic Disorder - Cancer History Cancer Type, Location and Year: BRAIN CANCER. STAGE 4 LUNG CANCER Infectious Disease History: Yes Infectious Disease History: Denies: Traveled Outside the [place] in Last 30 Days - Family History Known Family History: Positive: Hypertension - Social History Alcohol Use: Daily Alcohol Amount: few beers a day Substance Use Type: Reports: None Smoking Status (MU): Former Smoker Type: Cigarettes Amount Used/How Often: 1 PACK/DAY Have You Smoked in the Last Year: No Review of Systems Positive: Chest Pain Positive: Shortness Of Breath Negative: Rash All Other Systems Reviewed And Are Negative: Yes Physical Exam - Summary Physical Exam Summary: Appearance: Well appearing, no pain distress Skin: warm, dry, reflects adequate perfusion Head/face: normal Eyes: EOMI, RY ENT: normal Neck: supple, nontender Respiratory: CTA, breath sounds present Cardiovascular: RRR, pulses symmetrical, tenderness over R chest Abdomen: nontender, soft Bowel: present Musculoskeletal: normal, strength/ROM intact Neuro: normal, sensory motor intact, A&Ox3 Triage Information Reviewed: Yes Vital Signs On Initial Exam: Initial Vitals Temp Pulse Resp BP Pulse Ox 98.8 F 110 22 137/92 91 06/09/17 17:53 06/09/17 17:53 06/09/17 17:53 06/09/17 17:53 06/09/17 17:53 Vital Signs Reviewed: Yes Diagnostics - Vital Signs Vital Signs Temp Pulse Resp BP Pulse Ox 06/09/17 19:56 100.8 F 112 18 145/97 95 06/09/17 17:53 98.8 F 110 22 137/92 91 - Laboratory Lab Results: Lab Results 06/09/17 06/09/17 06/09/17 Range/Units 20:05 20:05 20:05 WBC 8.8 (3.5-10.8) 10^3/ul RBC 4.30 (4.0-5.4) 10^6/ul Hgb 14.2 (14.0-18.0) g/dl Hct 41 L (42-52) % MCV 95 H (80-94) fL MCH 33 H (27-31) pg MCHC 35 (31-36) g/dl RDW 15 (10.5-15) % Plt Count 232 (150-450) 10^3/ul MPV 7 L (7.4-10.4) um3 Immature Gran % (Auto) 19 H (0-9) % Neut % (Auto) 86.6 H (38-83) % Lymph % (Auto) 6.1 L (25-47) % Willacy % (Auto) 6.5 (1-9) % Eos % (Auto) 0.1 (0-6) % Baso % (Auto) 0.7 (0-2) % Absolute Neuts (auto) 7.7 (1.5-7.7) 10^3/ul Absolute Lymphs (auto) 0.5 L (1.0-4.8) 10^3/ul Absolute Monos (auto) 0.6 (0-0.8) 10^3/ul Absolute Eos (auto) 0 (0-0.6) 10^3/ul Absolute Basos (auto) 0.1 (0-0.2) 10^3/ul Absolute Nucleated RBC 0.01 10^3/ul Neutrophils % 69 (38-83) % Band Neutrophils % 18 H (0-8) % Lymphocytes % 4 L (25-47) % Reactive Lymphs % Not Reportable Monocytes % 8 (0-13) % Promyelocytes % 1 % Nucleated RBC % 0.2 Normal RBC Morphology Not Reportable Polychromasia 1+ Macrocytosis 1+ Sodium 134 (133-145) mmol/L Potassium 3.7 (3.5-5.0) mmol/L Chloride 97 L (101-111) mmol/L Carbon Dioxide 30 (22-32) mmol/L Anion Gap 7 (2-11) mmol/L BUN 18 (6-24) mg/dL Creatinine 0.65 L (0.67-1.17) mg/dL Est GFR ( Amer) 162.3 (>60) Est GFR (Non-Af Amer) 126.2 (>60) BUN/Creatinine Ratio 27.7 H (8-20) Glucose 97 (70-100) mg/dL Lactic Acid (0.5-2.0) mmol/L Calcium 9.2 (8.6-10.3) mg/dL Total Bilirubin 0.90 (0.2-1.0) mg/dL AST 25 (13-39) U/L ALT 75 H (7-52) U/L Alkaline Phosphatase 71 (34-104) U/L Troponin I 0.01 (<0.04) ng/mL B-Natriuretic Peptide 99 ( - 100) pg/mL Total Protein 7.0 (6.4-8.9) g/dL Albumin 3.8 (3.2-5.2) g/dL Globulin 3.2 (2-4) g/dL Albumin/Globulin Ratio 1.2 (1-3) 06/09/17 Range/Units 20:05 WBC (3.5-10.8) 10^3/ul RBC (4.0-5.4) 10^6/ul Hgb (14.0-18.0) g/dl Hct (42-52) % MCV (80-94) fL MCH (27-31) pg MCHC (31-36) g/dl RDW (10.5-15) % Plt Count (150-450) 10^3/ul MPV (7.4-10.4) um3 Immature Gran % (Auto) (0-9) % Neut % (Auto) (38-83) % Lymph % (Auto) (25-47) % Willacy % (Auto) (1-9) % Eos % (Auto) (0-6) % Baso % (Auto) (0-2) % Absolute Neuts (auto) (1.5-7.7) 10^3/ul Absolute Lymphs (auto) (1.0-4.8) 10^3/ul Absolute Monos (auto) (0-0.8) 10^3/ul Absolute Eos (auto) (0-0.6) 10^3/ul Absolute Basos (auto) (0-0.2) 10^3/ul Absolute Nucleated RBC 10^3/ul Neutrophils % (38-83) % Band Neutrophils % (0-8) % Lymphocytes % (25-47) % Reactive Lymphs % Monocytes % (0-13) % Promyelocytes % % Nucleated RBC % Normal RBC Morphology Polychromasia Macrocytosis Sodium (133-145) mmol/L Potassium (3.5-5.0) mmol/L Chloride (101-111) mmol/L Carbon Dioxide (22-32) mmol/L Anion Gap (2-11) mmol/L BUN (6-24) mg/dL Creatinine (0.67-1.17) mg/dL Est GFR ( Amer) (>60) Est GFR (Non-Af Amer) (>60) BUN/Creatinine Ratio (8-20) Glucose (70-100) mg/dL Lactic Acid 1.0 (0.5-2.0) mmol/L Calcium (8.6-10.3) mg/dL Total Bilirubin (0.2-1.0) mg/dL AST (13-39) U/L ALT (7-52) U/L Alkaline Phosphatase (34-104) U/L Troponin I (<0.04) ng/mL B-Natriuretic Peptide ( - 100) pg/mL Total Protein (6.4-8.9) g/dL Albumin (3.2-5.2) g/dL Globulin (2-4) g/dL Albumin/Globulin Ratio (1-3) Result Diagrams: 06/09/17 20:05 06/09/17 20:05 Lab Statement: Any lab studies that have been ordered have been reviewed, and results considered in the medical decision making process. - Radiology CXR Xray Interpretation: Positive (See Comments) - 1. LOW LUNG VOLUMES. 2. LINEAR ATELECTASIS OF THE LUNG BASES BILATERALLY. 3. SMALL RIGHT PLEURAL EFFUSION ED physician reviewed radiology report and agrees. Radiology Interpretation Completed By: Radiologist - CT CTA Chest CT Interpretation: Positive (See Comments) - Collapse and consolidation of the right lower lobe, presumably representing the patient's lung cancer. Scattered atelectasis and fibrotic changes in the remainder of the lungs with centriloublar emphysema. A few small bilateral pulmonar nodules, suspicious for metastatic disease. *small pulmonary emboli in a right posterior medial upper lobe artery and also within the right middle lobe and right lower lobe arteries. No evidence for aortic dissection. Mild cardiomegaly without significant pericardial effusion. No pleural effusion or pneumothorax. No reflux of contrast in suprahepatic portoin of IVC. Cannot exclude intraluminal thrombus. ED physician reviewed radiology report and agrees. CT Interpretation Completed By: Radiologist - EKG 190 Cardiac Rate: NL - 99 bpm EKG Rhythm: Sinus Rhythm EKG Interpretation: No acute changes Re-Evaluation - Re-Evaluation First Eval Re-Evaluation Time: 23:25 Comment: Discussed CT results with the pt. Course/Dx - Course Assessment/Plan: Pt is a 57 y/o M who presents to ED c/o R lateral CP and SOB. Guest reports that he has been experiencing SOB for about 1 week and that he woke up yesterday morning with R lateral CP. States that pain is only present upon deep breaths or "moving the wrong way" and when present, pain is severe, ranked 10/10. Sx aggravated by deep breaths and movement. Denies rash. Pt currently has stage 4 lung CA and completed radiation last week and will be beginning chemotherapy in 4 days. CXR and CTA Chest findings discussed above. EKG is sinus rhythm with no acute changes. Troponin of 0.01. In the ED course, pt received ASA, Lovenox, Roxycodone and Percocet 5/325. Discussed care of pt with Dr. Awad who advised a consultation with Dr. Harmon. Discussed care of pt with Dr. Harmon at 2316 who advised that the pt be D/C and follow up in the morning to be started on Lovenox. Pt will be D/C to home with Dx of PE with a follow up with Dr. Harmon tomorrow. He understands and agrees. Elevated BP noted. Medications reviewed. - Diagnoses Provider Diagnoses: Pulmonary embolism, Lung cancer - Physician Notifications Discussed Care of Patient With: Jm Awad Time Discussed With Above Provider: 23:14 Instructed by Provider To: Other - Advised a consultation with Dr. Harmon. Discussed care of pt with Dr. Harmon at 2316 who advised that the pt be D/C and follow up in the morning to be started on Lovenox. Discharge - Discharge Plan Condition: Stable Disposition: HOME Patient Education Materials: Deep Venous Thrombosis (ED) Referrals: Ozzie Harmon MD [Primary Care Provider] - 06/10/17 The documentation as recorded by the Matteo ken Rebecca accurately reflects the service I personally performed and the decisions made by , Panchito Jacobson.
--- NOTE | 2017-06-10 07:44 | RAD ---
HISTORY: Chest pain, shortness of breath, lung cancer COMPARISONS: May 02, 2017 TECHNIQUE: Multiple contiguous axial CT scans of the chest were obtained after the administration of nonionic intravenous contrast, timed to the pulmonary arterial phase of contrast enhancement.. Coronal and sagittal multiplanar reformations are also submitted for review. FINDINGS: NECK AND THYROID: The lower neck and thyroid are unremarkable. CHEST WALL: There is no lower cervical, axillary, or supraclavicular lymphadenopathy by size criteria. HEART AND PERICARDIUM: The heart is unremarkable. AORTA AND PULMONARY VASCULATURE: There are small filling defects within segmental branches of the right upper lobe and superior segment of the right lower lobe MEDIASTINUM: There is no mediastinal lymphadenopathy by size criteria. SELVIN: There is no hilar lymphadenopathy by size criteria. AIRWAY AND ESOPHAGUS: The airway is unremarkable, without endobronchial filling defect. The esophagus is grossly normal. LUNG PARENCHYMA: There is mild centrilobular emphysematous change. There is atelectasis of the lung bases bilaterally.. There is a 0.6 cm nodule of the lingula, similar to the previous examination. There are scattered smaller nodules in both lungs, though these have decreased in number and prominence when compared to the May 02, 2017 examination. PLEURA: There is a moderate right-sided pleural effusion. UPPER ABDOMEN: The upper abdomen is unremarkable. BONES AND SOFT TISSUES: Mild degenerative changes are noted. OTHER: None. IMPRESSION: 1. SEGMENTAL ARTERIAL FILLING DEFECTS WITHIN THE RIGHT LUNG CONSISTENT WITH PULMONARY EMBOLISM. THESE FINDINGS ARE COMMUNICATED TO DR. BUSCH BY DR. HANSON AND APPROXIMATELY 11:10 PM ON JUNE 09, 2017. 2. MODERATE RIGHT-SIDED PLEURAL EFFUSION. 3. BIBASILAR ATELECTASIS. 4. MULTIPLE PULMONARY PARENCHYMAL NODULES MEASURING UP TO 0.6 CM IN SIZE. THESE HAVE DECREASED IN EXTENT WHEN COMPARED TO MAY 02, 2017
== END 2017-06-10 00:10 | disposition home or self-care (01) ==
LOC: ED 17:44
DX: I26.99 Other pulmonary embolism without acute cor pulmonale (principal); C34.90 Malignant neoplasm of unspecified part of unspecified bronchus or lung; R07.9 Chest pain, unspecified; R06.02 Shortness of breath; R05 Cough; Z87.891 Personal history of nicotine dependence
CPT/HCPCS: 36415; 71020; 71275; 80053; 83605; 83880; 84484; 85025; 93005; 99284; A9270-GY; J1650; Q9967

== ENCOUNTER 2017-06-10 10:18 | Inpatient (IN) | payer MEDICAID ==
[2017-06-10] MEDS ORDERED: Morphine INJ* 4 MG/ML 1 ML CARPUJECT ONE (10:38)
[2017-06-10] MEDS ORDERED: Morphine INJ* 4 MG/ML 1 ML CARPUJECT IV ONE ×2 (10:40→10:41)
[2017-06-10 10:51] LABS: Add Diff/Slide Review? Slide Review Added; Comments Flag Yes; Hematocrit 40 % (42-52); Hemoglobin 13.8 g/dl (14.0-18.0); Mean Corpuscular HGB Conc 35 g/dl (31-36); Mean Corpuscular Hemoglobin 33 pg (27-31); Mean Corpuscular Volume 95 fL (80-94); Mean Platelet Volume 7 um3 (7.4-10.4); Red Blood Count 4.23 10^6/ul (4.0-5.4); Red Cell Distribution Width 15 % (10.5-15); White Blood Count 9.6 10^3/ul (3.5-10.8)
[2017-06-10 11:05] LABS: ALT 63 U/L (7-52); Albumin 3.6 g/dL (3.2-5.2); Alkaline Phosphatase 78 U/L (34-104); BUN/Creatinine Ratio 23.6 (8-20); Blood Urea Nitrogen 17 mg/dL (6-24); C Reactive Protein 321.86 mg/L (< 5.00); CO2 Carbon Dioxide 28 mmol/L (22-32); Calcium 9.2 mg/dL (8.6-10.3); Chloride 97 mmol/L (101-111); Creatine Kinase 28 U/L (10-223); EGFR African American 144.2 (>60); EGFR Non-African American 112.1 (>60); Globulin 3.6 g/dL (2-4); Glucose 101 mg/dL (70-100); Sodium 135 mmol/L (133-145); Total Protein 7.2 g/dL (6.4-8.9)
[2017-06-10 11:07] LABS: Troponin I 0.01 ng/mL (<0.04)
--- NOTE | 2017-06-10 11:19 | RAD ---
HISTORY: Shortness of breath COMPARISONS: June 09, 2017 VIEWS: 2: Frontal and lateral views of the chest. FINDINGS: CARDIOMEDIASTINAL SILHOUETTE: The cardiomediastinal silhouette is normal. SELVIN: The selvin are normal. PLEURA: There is blunting of the right costophrenic angle. LUNG PARENCHYMA: There is patchy alveolar opacification of the lung bases bilaterally. ABDOMEN: The upper abdomen is clear. There is no subphrenic gas. BONES AND SOFT TISSUES: No bone or soft tissue abnormalities are noted. OTHER: None. IMPRESSION: INCREASING SMALL RIGHT PLEURAL EFFUSION. BIBASILAR ATELECTASIS VERSUS CONSOLIDATION
[2017-06-10 11:32] LABS: Immature Granulocytes 9 % (0-9); Myelocytes % 2 % (0-1); Neutrophil % 81 % (38-83); RBC Morphology Normal (Normal); Reactive Lymph % 1 % (0-6)
[2017-06-10] MEDS ORDERED: Morphine INJ* 2 MG/ML 1 ML SYRINGE (TWO MG - NEW SYRINGE VERSION) IV PRN (11:32)
[2017-06-10] MEDS ORDERED: Acetaminophen TAB* 325 MG PO PRN (11:32)
[2017-06-10] MEDS ORDERED: Morphine INJ* 4 MG/ML 1 ML CARPUJECT IV PRN (11:47)
[2017-06-10 11:48] LABS: Anion Gap 10 mmol/L (2-11)
[2017-06-10] MEDS: oxyCODONE TAB* 5 MG TAB PO PRN ×2 (12:55→16:58)
[2017-06-10] MEDS: Azithromycin IV(*) 500 MG in NS 0.9% 250 ML* 250 ML IVPB SCH (12:56)
[2017-06-10 13:23] LABS: Urine Bilirubin Negative (Negative); Urine Glucose Negative (Negative); Urine Nitrite Negative (Negative)
[2017-06-10] MEDS: ceFUROXime IV(*) 750 MG in NS 0.9% 50 ML* 50 ML IVPB SCH ×2 (15:16→22:59)
--- NOTE | 2017-06-10 16:56 | ECHO ---
Patient: DEVIN ATKINSON [facility] Rec#: [id number] : 1960 Date: 06/10/2017 Age: 57y Height: 174 cm / 68.5 in Weight: 93.9 kg / 207.0 lbs Sex: M BSA: 2.1 Room#: 433 Admit Date#: 06/10/2017 Type: Inpatient Referring: Diane Brennan Reading: Frandy Andrew MD Neck Band Operator: Rachael Rincon RN RDCS CC: Ozzie Harmon MD Transthoracic Echocardiogram Indication: Pulmonary embolism BP: 127/64 HR: 93 Rhythm: NSR Findings History: HTN, HLD, former smoker, metastatic lung adenocarcinoma Technical Comments: The study quality is fair. The study is technically limited due to patient body habitus. The study is technically limited due to the patient's smoking history. Completed at 1645. Left Ventricle: The left ventricular chamber size is normal. Mild global hypokinesis of the left ventricle is observed. There is mildly decreased left ventricular systolic function. The estimated ejection fraction is 45-50%. Abnormal left ventricular diastolic filling is observed, consistent with impaired relaxation. Left Atrium: The left atrium is mildly dilated. Right Ventricle: The right ventricle is slightly dilated. The right ventricular global systolic function is low normal. Right Atrium: The right atrial cavity size is normal. Aortic Valve: The aortic valve structure is not well visualized. The aortic valve leaflets are mildly thickened. There is a trace of aortic regurgitation. There is no evidence of aortic stenosis. Mitral Valve: The mitral valve leaflets are mildly thickened. There is trace to mild mitral regurgitation. There is no evidence of mitral stenosis. Tricuspid Valve: The tricuspid valve leaflets are normal. There is trace tricuspid regurgitation. Unable to estimate the right ventricular systolic pressure. Pulmonic Valve: The pulmonic valve structure is not well visualized. Pericardium: There is no significant pericardial effusion. A pericardial fat pad is visualized. Aorta: There is mild dilatation of the ascending aorta. There is no dilatation of the aortic arch. There is no dilation of the aortic root. Pulmonary Artery: The main pulmonary artery is not well visualized. Venous: The inferior vena cava is dilated. There is an approximate 50% respiratory change in the inferior vena cava dimension. Summary: There was not any prior study for comparison. Conclusions The study is technically limited due to patient body habitus. The study is technically limited due to the patient's smoking history. Mild global hypokinesis of the left ventricle is observed. There is mildly decreased left ventricular systolic function. The estimated ejection fraction is 45-50%, closer to 50% Abnormal left ventricular diastolic filling is observed, consistent with impaired relaxation. The left atrium is mildly dilated. There is a trace of aortic regurgitation. There is trace to mild mitral regurgitation. There is trace tricuspid regurgitation. Unable to estimate the right ventricular systolic pressure. There is mild dilatation of the ascending aorta. Measurements Name Value Normal Range RVDdMajor (2D) 4.1 cm (2.2 - 4.4) RAd ISD 4CH 4.8 cm (3.4 - 4.9) RA (A4C)W 3.8 cm (2.9 - 4.6) IVSd (2D) 1 cm (0.6 - 1) LVPWd (2D) 1 cm (0.6 - 1) LVIDd (2D) 4.1 cm (3.6 - 5.4) LVIDs (2D) 3.2 cm - LV FS (2D) 21 % (25 - 45) Aortic Annulus 2.2 cm (1.4 - 2.6) Ao root diameter (2D) 3.1 cm (2.1 - 3.5) Ascending Ao 3.5 cm (2.1 - 3.4) Aortic arch 2.7 cm (1.8 - 3.4) LA dimension (AP) 2D 3.1 cm (2.3 - 3.8) LAd ISD 4CH 5.9 cm (2.9 - 5.3) LA ISD 4CH W 4.4 cm (2.5 - 4.5) Name Value Normal Range LA ESV SP 4CH (A/L) 71 ml - LA ESV SP 2CH (A/L) 39 ml - LA ESV BP (A/L) 55 ml - LA ESV BP (A/L) index 26.5 ml/m2 - LA ESV SP 4CH (MOD) 70 ml - LA ESV SP 2CH (MOD) 37 ml - Name Value Normal Range MV E-wave Vmax 0.8 m/sec - MV deceleration time 25 msec - MV A-wave Vmax 0.91 m/sec - MV E:A ratio 0.88 ratio - LV septal e' Vmax 0.06 m/sec - LV lateral e' Vmax 0.08 m/sec - LV E:e' septal ratio 13.3 ratio - LV E:e' lateral ratio 10 ratio - Name Value Normal Range AV Vmax 1.3 m/sec - AV VTI 25.2 cm - AV peak gradient 6.8 mmHg - AV mean gradient 4.9 mmHg - LVOT Vmax 1.1 m/sec - LVOT VTI 22.9 cm - LVOT peak gradient 4.7 mmHg - LVOT mean gradient 2.5 mmHg - JUSTA Vmax 0.67 m/sec - Name Value Normal Range IVC diameter 2.3 cm - Name Value Normal Range PV Vmax 0.82 m/sec -
[2017-06-10] MEDS ORDERED: KCL 20 MEQ/100 ML IVPREMIX* 20 MEQ/100 ML BAG IV ONE (17:43)
[2017-06-10 17:47] LABS: Body Fluid Appearance Bloody
[2017-06-10 18:26] LABS: Body Fluid Myelo 1 %; Body Fluid Total Cells Counted 100
--- NOTE | 2017-06-10 18:28 | RAD ---
Indication: RIGHT lower lobe lung cancer. Assess for pneumothorax. Comparison: June 10, 2017 chest radiograph and June 09, 2017 CT. Technique: Upright AP 1745 hours Report: No pneumothorax evident. Bibasilar atelectasis/consolidation with interval improvement on the RIGHT compared with the prior exam. Small pleural effusions not excluded. Negative for cardiomegaly. Unremarkable central pulmonary vasculature accounting for low lung volumes. IMPRESSION: Negative for pneumothorax. Decreased magnitude of atelectasis/consolidation at the RIGHT lung base.
--- NOTE | 2017-06-10 18:44 | PRO ---
CC: [facility]; Diane Scott NP * CONSULTATION AND PROCEDURE NOTE: DATE OF CONSULT: 06/10/17 HISTORY OF PRESENT ILLNESS: I was contacted by Diane Scott, to evaluate Mr. Wills, a 57-year-old gentleman, recently diagnosed with lung cancer, metastatic to the brain, who has undergone radiation therapy, who presented with shortness of breath and right-sided chest pain. The patient was diagnosed with pulmonary emboli. He also had a pleural effusion. There was concern for possible pneumonia and the patient was admitted, started on antibiotics and the concern was the need for fluid for culture. The patient describes feeling well. Denies any fevers or chills. He is having some shortness of breath, did receive a dose of anticoagulation earlier today. The patient is on b.i.d. dosing of Lovenox. PHYSICAL EXAMINATION: On physical exam, he is well appearing, in no apparent distress. He is afebrile. Vital signs are stable. Heart rate is 90, O2 sat of 95% on 2 L cannula with a respiration rate of 20s. Lungs: Decreased breath sounds on the right. No palpable lesions. DIAGNOSTIC STUDIES: CT scan reviewed from yesterday shows a right-sided small pleural effusion. It does layer to some extent and extends towards pulmonary parenchymal lesions. There is atelectasis. IMPRESSION: Small pleural effusion on the right concerning for possible infectious process. The patient's shortness of breath likely secondary to pulmonary emboli; however, it seems that if the patient undergoes a therapeutic thoracentesis, we might find possible infectious process and he would require additional treatments. I outlined the details of the procedure to him and his [id number] who is his healthcare proxy. I went over the risks, benefits, and alternatives namely discussing the potential for bleeding, both intrathoracic or intraabdominal as the patient is on blood thinners and the possible need for chest tube placement and the possibility of additional treatment needed if this does prove infectious. PROCEDURE NOTE: After obtaining this informed consent, the patient was positioned on the bed. We prepped the right back in a standard fashion. Injection of lidocaine for local block was performed and the thoracentesis kit needle was then inserted into the chest on first pass at approximately the 8th intercostal space. I was not able to drain any fluid. I retried going somewhat more medially and was only able to obtain what appeared first to be a bloody fluid, turned out later to show evidence of clotting to suggest a vascular access had been performed. This will be sent for a culture any how and cytology. I placed a dressing at this site. The patient tolerated the procedure well, would like to send him for a chest x-ray to rule out pneumothorax and hemothorax and reach out to the oncology service to hold off on blood thinners for at least 1 more dose, restart tomorrow, and possibly send him for thoracentesis with the radiology department. I will continue to follow. [id number]/CPS #: [id number] MTDD
[2017-06-10] MEDS ORDERED: Zolpidem TAB* 10 MG PO PRN (21:00)
[2017-06-10] MEDS: Dexamethasone TAB* 4 MG PO SCH (23:05)
[2017-06-10] MEDS: levETIRAcetam TAB* 500 MG PO SCH (23:06)
--- NOTE | 2017-06-11 02:21 | ED ---
Mariel Galaviz Edward, scribed for Naz Linares MD on 06/10/17 at 1028 . Shortness of Breath - HPI Summary HPI Summary: 57 y/o male with metastatic adenocarcinoma of the lung presents to the ED c/o increased SOB and increased CP located below the R ribcage that radiates around to the R flank starting one week ago. The symptoms became worse yesterday when the pt woke up and became worse throughout the day. The pt was seen yesterday in the ED dx'd with a PE and after discussion with Dr. Harmon, was DC'd home with plan to start Lovenox and be seen in the office this am. The sx of pain and SOB became worse last night so pt returned to the ED this am. The symptoms are not alleviated by anything and aggravated with deep breaths. Associated sx: bilateral pedal edema, mild cough, decreased appetite. Denies fever. PMHx collapsed R lung, PE's, metatstatic adenoCA of lung. Pt finished his last radiation chemotherapy on 05/27/17. Information provided by the pt's daughter in law.Pt's primary language is Italian, but he can answer simple questions about pain and symptoms. - History of Current Complaint Chief Complaint: EDShortnessOfBreath Time Seen by Provider: 06/10/17 10:20 Hx Obtained From: Patient, Family/[employer] Operator - [id number], Medical Records, Other: - Dr. Oro Onset/Duration: Gradual Onset, Lasting Days, Worse Since - yesterday morning Timing: Constant Current Severity: Severe Dyspnea At: Rest Aggrevating Factors: Deep Breaths Alleviating Factors: Nothing Associated Signs & Symptoms: Cough (Nonproductive), Chest Pain Unrelated to Cough, Edema - Risk Factors Pulmonary Embolism: Malignancy - Allergy/Home Medications Allergies/Adverse Reactions: Allergies Allergy/AdvReac Type Severity Reaction Status Date / Time No Known Allergies Allergy Verified 06/10/17 10:45 Home Medications: Home Medications Acetaminophen TAB* [Tylenol TAB*] 650 mg PO Q6HR PRN 06/10/17 [History Confirmed 06/10/17] Furosemide TAB* [Lasix TAB*] 40 mg PO DAILY 06/10/17 [History Confirmed 06/10/17 ] Zolpidem TAB* [Ambien*] 10 mg PO BEDTIME 06/10/17 [History Confirmed 06/10/17] Omeprazole CAP* [Prilosec CAP* 20 MG] 20 mg PO DAILY 06/12/17 [History Confirmed 06/12/17] PMH/Surg Hx/FS Hx/Imm Hx Previously Healthy: No Endocrine/Hematology History: Denies: Hx Diabetes Cardiovascular History: Reports: Hx Hypercholesterolemia Denies: Hx Hypertension, Hx Pacemaker/ICD Respiratory History: Reports: Other Respiratory Problems/Disorders - metastatic adenocarcinoma of lung History: Denies: Hx Renal Disease Sensory History: Denies: Hx Contacts or Glasses, Hx Hearing Aid Opthamlomology History: Denies: Hx Contacts or Glasses Psychiatric History: Denies: Hx Panic Disorder - Cancer History Cancer Type, Location and Year: metastatic adenocarcinoma, lung primary Hx Radiation Therapy: Yes - Surgical History Surgery Procedure, Year, and Place: no surg hx except bronchoscopy Infectious Disease History: No - Family History Known Family History: Positive: Hypertension - Social History Lives: With Family Alcohol Use: Daily Alcohol Amount: few beers a day Hx Substance Use: No Substance Use Type: Reports: None Hx Tobacco Use: Yes Smoking Status (MU): Former Smoker Type: Cigarettes Amount Used/How Often: 1 PACK/DAY Have You Smoked in the Last Year: No Review of Systems Constitutional: Negative Eyes: Negative ENT: Negative Positive: Chest Pain Positive: Shortness Of Breath, Cough Gastrointestinal: Other - Decreased appetite Genitourinary: Negative Musculoskeletal: Negative Skin: Negative Neurological: Negative Psychological: Normal All Other Systems Reviewed And Are Negative: Yes Physical Exam - Summary Physical Exam Summary: Appearance: Ill-appearing, pain distress, Well-nourished. Low-grade temp @ 100.7 Skin: Warm, color reflects adequate perfusion. Ecchymosis on R side ABD @ injection site for Lovenox. Head: Normal Head/Face Eyes: Conjunctiva clear ENT: Normal , pharynx clear Neck: Supple, no JVD Respiratory: Respirations labored. Lung sounds diminished on the R side. Cardio: Tachycardic, No murmur, pulses normal, brisk capillary refill Abdomen: soft, nontender Bowel sounds: present Musculoskeletal: Strength Intact/ ROM intact. Visible edema under compression stockings. Neuro: Alert, muscle tone normal, ED: facial symmetry, speech normal, sensory/ motor intact Triage Information Reviewed: Yes Vital Signs On Initial Exam: Initial Vitals BP 128/81 10/09/17 10:25 Vital Signs Reviewed: Yes Diagnostics - Vital Signs Vital Signs Pulse Resp BP Pulse Ox 06/10/17 11:07 116 14 93 06/10/17 10:49 20 06/10/17 10:48 93 06/10/17 10:30 119 20 121/77 95 06/10/17 10:27 124 20 93 06/10/17 10:25 128/81 - Laboratory Lab Results: Lab Results 06/10/17 06/10/17 06/10/17 Range/Units 10:33 10:33 10:33 WBC (3.5-10.8) 10^3/ul RBC (4.0-5.4) 10^6/ul Hgb (14.0-18.0) g/dl Hct (42-52) % MCV (80-94) fL MCH (27-31) pg MCHC (31-36) g/dl RDW (10.5-15) % Plt Count (150-450) 10^3/ul MPV (7.4-10.4) um3 Immature Gran % (Auto) (0-9) % Neut % (Auto) (38-83) % Lymph % (Auto) (25-47) % [place] % (Auto) (1-9) % Eos % (Auto) (0-6) % Baso % (Auto) (0-2) % Absolute Neuts (auto) (1.5-7.7) 10^3/ul Absolute Lymphs (auto) (1.0-4.8) 10^3/ul Absolute Monos (auto) (0-0.8) 10^3/ul Absolute Eos (auto) (0-0.6) 10^3/ul Absolute Basos (auto) (0-0.2) 10^3/ul Absolute Nucleated RBC 10^3/ul Neutrophils % (38-83) % Band Neutrophils % (0-8) % Lymphocytes % (25-47) % Reactive Lymphs % (0-6) % Monocytes % (0-13) % Myelocytes % (0-1) % Nucleated RBC % Normal RBC Morphology (Normal) INR (Anticoag Therapy) 1.14 H (0.89-1.11) APTT 32.9 (26.0-36.3) seconds Sodium 135 (133-145) mmol/L Potassium TNP Chloride 97 L (101-111) mmol/L Carbon Dioxide 28 (22-32) mmol/L Anion Gap 10 (2-11) mmol/L BUN 17 (6-24) mg/dL Creatinine 0.72 (0.67-1.17) mg/dL Est GFR ( Amer) 144.2 (>60) Est GFR (Non-Af Amer) 112.1 (>60) BUN/Creatinine Ratio 23.6 H (8-20) Glucose 101 H (70-100) mg/dL Lactic Acid (0.5-2.0) mmol/L Calcium 9.2 (8.6-10.3) mg/dL Total Bilirubin 1.40 H (0.2-1.0) mg/dL AST TNP ALT 63 H (7-52) U/L Alkaline Phosphatase 78 (34-104) U/L Total Creatine Kinase 28 (10-223) U/L CK-MB (CK-2) 1.2 (0.6-6.3) ng/mL Troponin I 0.01 (<0.04) ng/mL C-Reactive Protein 321.86 H (< 5.00) mg/L B-Natriuretic Peptide 114 H ( - 100) pg/mL Total Protein 7.2 (6.4-8.9) g/dL Albumin 3.6 (3.2-5.2) g/dL Globulin 3.6 (2-4) g/dL Albumin/Globulin Ratio 1.0 (1-3) Procalcitonin (<0.6) ng/mL Influenza A (Rapid) (Negative) Influenza B (Rapid) (Negative) 06/10/17 06/10/17 06/10/17 Range/Units 10:33 10:33 10:44 WBC 9.6 (3.5-10.8) 10^3/ul RBC 4.23 (4.0-5.4) 10^6/ul Hgb 13.8 L (14.0-18.0) g/dl Hct 40 L (42-52) % MCV 95 H (80-94) fL MCH 33 H (27-31) pg MCHC 35 (31-36) g/dl RDW 15 (10.5-15) % Plt Count 258 (150-450) 10^3/ul MPV 7 L (7.4-10.4) um3 Immature Gran % (Auto) 9 (0-9) % Neut % (Auto) 87.3 H (38-83) % Lymph % (Auto) 7.0 L (25-47) % [place] % (Auto) 5.5 (1-9) % Eos % (Auto) 0.1 (0-6) % Baso % (Auto) 0.1 (0-2) % Absolute Neuts (auto) 8.4 H (1.5-7.7) 10^3/ul Absolute Lymphs (auto) 0.7 L (1.0-4.8) 10^3/ul Absolute Monos (auto) 0.5 (0-0.8) 10^3/ul Absolute Eos (auto) 0 (0-0.6) 10^3/ul Absolute Basos (auto) 0 (0-0.2) 10^3/ul Absolute Nucleated RBC 0.02 10^3/ul Neutrophils % 81 (38-83) % Band Neutrophils % 7 (0-8) % Lymphocytes % 2 L (25-47) % Reactive Lymphs % 1 (0-6) % Monocytes % 7 (0-13) % Myelocytes % 2 H (0-1) % Nucleated RBC % 0.2 Normal RBC Morphology Normal (Normal) INR (Anticoag Therapy) (0.89-1.11) APTT (26.0-36.3) seconds Sodium (133-145) mmol/L Potassium 3.3 L Chloride (101-111) mmol/L Carbon Dioxide (22-32) mmol/L Anion Gap (2-11) mmol/L BUN (6-24) mg/dL Creatinine (0.67-1.17) mg/dL Est GFR ( Amer) (>60) Est GFR (Non-Af Amer) (>60) BUN/Creatinine Ratio (8-20) Glucose (70-100) mg/dL Lactic Acid 1.4 (0.5-2.0) mmol/L Calcium (8.6-10.3) mg/dL Total Bilirubin (0.2-1.0) mg/dL AST 20 ALT (7-52) U/L Alkaline Phosphatase (34-104) U/L Total Creatine Kinase (10-223) U/L CK-MB (CK-2) (0.6-6.3) ng/mL Troponin I (<0.04) ng/mL C-Reactive Protein (< 5.00) mg/L B-Natriuretic Peptide ( - 100) pg/mL Total Protein (6.4-8.9) g/dL Albumin (3.2-5.2) g/dL Globulin (2-4) g/dL Albumin/Globulin Ratio (1-3) Procalcitonin (<0.6) ng/mL Influenza A (Rapid) (Negative) Influenza B (Rapid) (Negative) 06/10/17 06/10/17 Range/Units 10:44 10:53 WBC (3.5-10.8) 10^3/ul RBC (4.0-5.4) 10^6/ul Hgb (14.0-18.0) g/dl Hct (42-52) % MCV (80-94) fL MCH (27-31) pg MCHC (31-36) g/dl RDW (10.5-15) % Plt Count (150-450) 10^3/ul MPV (7.4-10.4) um3 Immature Gran % (Auto) (0-9) % Neut % (Auto) (38-83) % Lymph % (Auto) (25-47) % [place] % (Auto) (1-9) % Eos % (Auto) (0-6) % Baso % (Auto) (0-2) % Absolute Neuts (auto) (1.5-7.7) 10^3/ul Absolute Lymphs (auto) (1.0-4.8) 10^3/ul Absolute Monos (auto) (0-0.8) 10^3/ul Absolute Eos (auto) (0-0.6) 10^3/ul Absolute Basos (auto) (0-0.2) 10^3/ul Absolute Nucleated RBC 10^3/ul Neutrophils % (38-83) % Band Neutrophils % (0-8) % Lymphocytes % (25-47) % Reactive Lymphs % (0-6) % Monocytes % (0-13) % Myelocytes % (0-1) % Nucleated RBC % Normal RBC Morphology (Normal) INR (Anticoag Therapy) (0.89-1.11) APTT (26.0-36.3) seconds Sodium (133-145) mmol/L Potassium Chloride (101-111) mmol/L Carbon Dioxide (22-32) mmol/L Anion Gap (2-11) mmol/L BUN (6-24) mg/dL Creatinine (0.67-1.17) mg/dL Est GFR ( Amer) (>60) Est GFR (Non-Af Amer) (>60) BUN/Creatinine Ratio (8-20) Glucose (70-100) mg/dL Lactic Acid (0.5-2.0) mmol/L Calcium (8.6-10.3) mg/dL Total Bilirubin (0.2-1.0) mg/dL AST ALT (7-52) U/L Alkaline Phosphatase (34-104) U/L Total Creatine Kinase (10-223) U/L CK-MB (CK-2) (0.6-6.3) ng/mL Troponin I (<0.04) ng/mL C-Reactive Protein (< 5.00) mg/L B-Natriuretic Peptide ( - 100) pg/mL Total Protein (6.4-8.9) g/dL Albumin (3.2-5.2) g/dL Globulin (2-4) g/dL Albumin/Globulin Ratio (1-3) Procalcitonin 3.3 H (<0.6) ng/mL Influenza A (Rapid) Negative (Negative) Influenza B (Rapid) Negative (Negative) Result Diagrams: 06/12/17 05:33 06/12/17 05:33 Lab Statement: Any lab studies that have been ordered have been reviewed, and results considered in the medical decision making process. - Radiology CXR Xray Interpretation: No Acute Changes - INCREASING SMALL RIGHT PLEURAL EFFUSION. BIBASILAR ATELECTASIS VERSUS CONSOLIDATION Radiology Interpretation Completed By: Radiologist - Additional Comments Diagnostic Additional Comments: EKG - 11:12 - ST @ 113. Normal AV, IV and QTC. Negative axis. No acute changes from 06/09/17. Course/Dx - Course Assessment/Plan: 57 y/o male with hx metastatic adenocarcinoma presents to the ED c/o increased SOB and increased CP located below the R ribcage that radiates around to the R flank starting one week ago. The symptoms became worse yesterday when the pt woke up and became worse throughout the day. The pt was seen yesterday in the ED and dx'd with PE and DC's home after consulting with Dr. Harmon, to begin Lovenox and follow up in the office this am, and then the sx became worse last night with increased pain and SOB, so pt returned to the ED. The symptoms are not alleviated by anything and aggravated with deep breaths. Associated sx: bilateral pedal edema, mild cough, decreased appetite. Denies fever. PMHx collapsed R lung, PE's, lung cancer. Pt finished his last radiation chemotherapy on 05/27/17. Information provided by the pt's daughter in law. Pt will be admitted to Dr. Oro @ 10:34. EKG - 11:12 - ST @ 113. Normal AV, IVCT and QTC. Negative axis. No acute changes from 06/09/17. CXR - INCREASING SMALL RIGHT PLEURAL EFFUSION. BIBASILAR ATELECTASIS VERSUS CONSOLIDATION. Pt was given morpine in the ED and he will be admitted for further evaluation of the pleural effusion, treatment of pneumonia and fluid overload and continued treatment of the PE. - Diagnoses Differential Diagnosis/HQI/PQRI: Positive: CHF, Pneumonia, Pulmonary Embolism, Pulmonary Edema Provider Diagnoses: Pulmonary embolism, Pleural effusion, Pulmonary edema, metastatic adenocarcinoma, lung primary, Pneumonia - Physician Notifications Discussed Care of Patient With: Олег Oro Time Discussed With Above Provider: 10:34 Instructed by Provider To: Admit As Inpatient - Critical Care Time Critical Care Time: 30-74 min - 30mins Discharge - Discharge Plan Condition: Stable Disposition: ADMITTED TO [facility] documentation as recorded by the Mariel ken Edward accurately reflects the service I personally performed and the decisions made by , Naz Linares MD.
[2017-06-11 04:43] LABS: Hematocrit 37 % (42-52); Hemoglobin 12.7 g/dl (14.0-18.0); Mean Corpuscular HGB Conc 34 g/dl (31-36); Mean Corpuscular Hemoglobin 32 pg (27-31); Mean Corpuscular Volume 94 fL (80-94); Mean Platelet Volume 7 um3 (7.4-10.4); Red Blood Count 3.94 10^6/ul (4.0-5.4); Red Cell Distribution Width 15 % (10.5-15)
[2017-06-11 04:57] LABS: Albumin 3.1 g/dL (3.2-5.2); BUN/Creatinine Ratio 28.8 (8-20); Calcium 8.8 mg/dL (8.6-10.3); EGFR African American 159.4 (>60); Globulin 3.2 g/dL (2-4); Magnesium 2.2 mg/dL (1.9-2.7); Potassium 3.6 mmol/L (3.5-5.0); Total Protein 6.3 g/dL (6.4-8.9)
[2017-06-11] MEDS: oxyCODONE TAB* 5 MG TAB PO PRN (05:20)
[2017-06-11] MEDS: ceFUROXime IV(*) 750 MG in NS 0.9% 50 ML* 50 ML IVPB SCH ×3 (05:22→22:04)
--- NOTE | 2017-06-11 07:43 | PN ---
Progress Note - Progress Note Date of Service: 06/11/17 SOAP: Subjective: []Feeling much better today. Pain is decreased, able to take breaths easier. No fevers. Acetaminophen (Tylenol Tab*) 650 mg PO Q4H PRN PRN Reason: pain/fever/headache Last Admin: 06/10/17 12:55 Dose: 650 mg Dexamethasone (Decadron Tab*) 4 mg PO BID [facility] Last Admin: 06/10/17 23:05 Dose: 4 mg Cefuroxime Sodium 750 mg/ (Sodium Chloride) 50 mls @ 100 mls/hr IVPB Q8H [facility] Last Admin: 06/11/17 05:22 Dose: 100 mls/hr Azithromycin 500 mg/ Sodium (Chloride) 250 mls @ 250 mls/hr IVPB Q24H [facility] Last Admin: 06/10/17 12:56 Dose: 250 mls/hr Levetiracetam (Keppra Tab*) 500 mg PO BID [facility] Last Admin: 06/10/17 23:06 Dose: 500 mg Morphine Sulfate (Morphine Inj (Syringe)*) 2 mg IV Q2H PRN PRN Reason: PAIN Last Admin: 06/10/17 16:59 Dose: 2 mg Oxycodone HCl (Roxycodone Tab*) 10 mg PO Q4H PRN PRN Reason: PAIN Last Admin: 06/11/17 05:20 Dose: 10 mg Zolpidem Tartrate (Ambien Tab*) 10 mg PO BEDTIME PRN PRN Reason: INSOMNIA Last Admin: 06/10/17 23:06 Dose: 10 mg Objective: [] Vital Signs Temp Pulse Resp BP Pulse Ox 98.3 F 88 20 120/84 95 06/11/17 03:22 06/11/17 03:22 06/11/17 05:20 06/11/17 03:22 06/11/17 03:22 HEENT - no thrush, no JVD Right crackles, decreased BS RRR S1S2 Obease good pulse in ext, no cyanosis Neuro NF Laboratory Last Values WBC 9.0 10^3/ul (3.5-10.8) 06/11/17 04:23 RBC 3.94 10^6/ul (4.0-5.4) L 06/11/17 04:23 Hgb 12.7 g/dl (14.0-18.0) L 06/11/17 04:23 Hct 37 % (42-52) L 06/11/17 04:23 MCV 94 fL (80-94) 06/11/17 04:23 MCH 32 pg (27-31) H 06/11/17 04:23 MCHC 34 g/dl (31-36) 06/11/17 04:23 RDW 15 % (10.5-15) 06/11/17 04:23 Plt Count 229 10^3/ul (150-450) 06/11/17 04:23 MPV 7 um3 (7.4-10.4) L 06/11/17 04:23 Immature Gran % (Auto) 9 % (0-9) 06/10/17 10:33 Neut % (Auto) 93.1 % (38-83) H 06/11/17 04:23 Lymph % (Auto) 3.3 % (25-47) L 06/11/17 04:23 [place] % (Auto) 3.2 % (1-9) 06/11/17 04:23 Eos % (Auto) 0.1 % (0-6) 06/11/17 04:23 Baso % (Auto) 0.3 % (0-2) 06/11/17 04:23 Absolute Neuts (auto) 8.4 10^3/ul (1.5-7.7) H 06/11/17 04:23 Absolute Lymphs (auto) 0.3 10^3/ul (1.0-4.8) L 06/11/17 04:23 Absolute Monos (auto) 0.3 10^3/ul (0-0.8) 06/11/17 04:23 Absolute Eos (auto) 0 10^3/ul (0-0.6) 06/11/17 04:23 Absolute Basos (auto) 0 10^3/ul (0-0.2) 06/11/17 04:23 Absolute Nucleated RBC 0.01 10^3/ul 06/11/17 04:23 Neutrophils % 81 % (38-83) 06/10/17 10:33 Band Neutrophils % 7 % (0-8) 06/10/17 10:33 Lymphocytes % 2 % (25-47) L 06/10/17 10:33 Reactive Lymphs % 1 % (0-6) 06/10/17 10:33 Monocytes % 7 % (0-13) 06/10/17 10:33 Myelocytes % 2 % (0-1) H 06/10/17 10:33 Nucleated RBC % 0.1 06/11/17 04:23 Normal RBC Morphology Normal (Normal) 06/10/17 10:33 INR (Anticoag Therapy) 1.14 (0.89-1.11) H 06/10/17 10:33 APTT 32.9 seconds (26.0-36.3) 06/10/17 10:33 Sodium 135 mmol/L (133-145) 06/11/17 04:18 Potassium 3.6 mmol/L (3.5-5.0) 06/11/17 04:18 Chloride 102 mmol/L (101-111) 06/11/17 04:18 Carbon Dioxide 24 mmol/L (22-32) 06/11/17 04:18 Anion Gap 9 mmol/L (2-11) 06/11/17 04:18 BUN 19 mg/dL (6-24) 06/11/17 04:18 Creatinine 0.66 mg/dL (0.67-1.17) L 06/11/17 04:18 Est GFR ( Amer) 159.4 (>60) 06/11/17 04:18 Est GFR (Non-Af Amer) 124.0 (>60) 06/11/17 04:18 BUN/Creatinine Ratio 28.8 (8-20) H 06/11/17 04:18 Glucose 217 mg/dL (70-100) H 06/11/17 04:18 Lactic Acid 1.4 mmol/L (0.5-2.0) 06/10/17 10:33 Calcium 8.8 mg/dL (8.6-10.3) 06/11/17 04:18 Magnesium 2.2 mg/dL (1.9-2.7) 06/11/17 04:18 Total Bilirubin 1.00 mg/dL (0.2-1.0) 06/11/17 04:18 AST 16 U/L (13-39) 06/11/17 04:18 ALT 55 U/L (7-52) H 06/11/17 04:18 Alkaline Phosphatase 99 U/L (34-104) 06/11/17 04:18 Total Creatine Kinase 28 U/L (10-223) 06/10/17 10:33 CK-MB (CK-2) 1.2 ng/mL (0.6-6.3) 06/10/17 10:33 Troponin I 0.01 ng/mL (<0.04) 06/10/17 10:33 C-Reactive Protein 321.86 mg/L (< 5.00) H 06/10/17 10:33 B-Natriuretic Peptide 114 pg/mL (-100) H 06/10/17 10:33 Total Protein 6.3 g/dL (6.4-8.9) L 06/11/17 04:18 Albumin 3.1 g/dL (3.2-5.2) L 06/11/17 04:18 Globulin 3.2 g/dL (2-4) 06/11/17 04:18 Albumin/Globulin Ratio 1.0 (1-3) 06/11/17 04:18 Procalcitonin 3.3 ng/mL (<0.6) H 06/10/17 10:44 Urine Color Yellow 06/10/17 13:07 Urine Appearance Clear 06/10/17 13:07 Urine pH 6.0 (5-9) 06/10/17 13:07 Ur Specific [place] 1.014 (1.010-1.030) 06/10/17 13:07 Urine Protein Negative (Negative) 06/10/17 13:07 Urine Ketones Negative (Negative) 06/10/17 13:07 Urine Blood Negative (Negative) 06/10/17 13:07 Urine Nitrate Negative (Negative) 06/10/17 13:07 Urine Bilirubin Negative (Negative) 06/10/17 13:07 Urine Urobilinogen Positive (Negative) H 06/10/17 13:07 Ur Leukocyte Esterase Negative (Negative) 06/10/17 13:07 Urine Glucose Negative (Negative) 06/10/17 13:07 Fluid Source Pleural fluid 06/10/17 17:25 Fluid Volume 4 mL 06/10/17 17:25 Fluid Color Red 06/10/17 17:25 Fluid Appearance Bloody 06/10/17 17:25 Fluid WBC TNP 06/10/17 17:25 Fluid RBC TNP 06/10/17 17:25 Fluid Tot Cell Count 100 06/10/17 17:25 Fluid Neutrophils 85 % 06/10/17 17:25 Fluid Band Neutrophils 8 % 06/10/17 17:25 Fluid Lymphocytes 4 % 06/10/17 17:25 Fluid Monocytes 2 % 06/10/17 17:25 Fluid Myelocytes 1 % 06/10/17 17:25 Fluid Nucleated RBCs 0 06/10/17 17:25 Influenza A (Rapid) Negative (Negative) 06/10/17 10:53 Influenza B (Rapid) Negative (Negative) 06/10/17 10:53 Assessment: []57 year old appears to have post obstructive pnemonia with + Procalcitonin and a PE. CT consistent with consolidated, XRT and or post obstructive pnemonia. Getting better. Minimal fluid removed from pleura. Plan: []1. No additional drainage of pleural fluid. 2. Continue ABX and Lovenox today 3. Coumadin 4. Plan D/C tomorrow on po abx for post obstruction - Augmentin, if doing well.
[2017-06-11] MEDS: levETIRAcetam TAB* 500 MG PO SCH ×2 (08:50→22:02)
[2017-06-11] MEDS: Dexamethasone TAB* 4 MG PO SCH ×2 (08:50→22:03)
[2017-06-11] MEDS: Azithromycin IV(*) 500 MG in NS 0.9% 250 ML* 250 ML IVPB SCH (13:38)
[2017-06-11] MEDS ORDERED: Warfarin TAB(*) 5 MG PO SCH (17:00)
[2017-06-12] MEDS: ceFUROXime IV(*) 750 MG in NS 0.9% 50 ML* 50 ML IVPB SCH ×2 (05:21→13:02)
[2017-06-12 05:53] LABS: Hematocrit 36 % (42-52); Mean Corpuscular HGB Conc 34 g/dl (31-36); Mean Corpuscular Hemoglobin 32 pg (27-31); Mean Corpuscular Volume 95 fL (80-94); Mean Platelet Volume 7 um3 (7.4-10.4); Red Blood Count 3.76 10^6/ul (4.0-5.4); Red Cell Distribution Width 15 % (10.5-15); White Blood Count 9.6 10^3/ul (3.5-10.8)
[2017-06-12 06:07] LABS: Albumin 2.8 g/dL (3.2-5.2); BUN/Creatinine Ratio 45.5 (8-20); Calcium 8.5 mg/dL (8.6-10.3); EGFR African American 254.6 (>60); EGFR Non-African American 197.9 (>60); Globulin 3.1 g/dL (2-4); Potassium 3.5 mmol/L (3.5-5.0); Total Bilirubin 0.5 mg/dL (0.2-1.0); Total Protein 5.9 g/dL (6.4-8.9)
[2017-06-12] MEDS: Dexamethasone TAB* 4 MG PO SCH (08:24)
[2017-06-12] MEDS: levETIRAcetam TAB* 500 MG PO SCH (08:24)
[2017-06-12 11:36] VITALS: BP 143/97
[2017-06-12] MEDS ORDERED: Enoxaparin(*) 150 MG/ML 1 ML SYRINGE SUBCUT SCH (13:00)
[2017-06-12] MEDS: Azithromycin IV(*) 500 MG in NS 0.9% 250 ML* 250 ML IVPB SCH (13:02)
== END 2017-06-12 13:29 | disposition home or self-care (01) | DRG 134 ==
LOC: ED 10:18 → MEDTELE 11:32
PROVIDERS: ADMIT Internal Medicine Hematology & Oncology; ATTEND Internal Medicine Hematology & Oncology
PROC: 0W993ZZ Drainage of Right Pleural Cavity, Percutaneous Approach (ICD-10-PCS; principal; 2017-06-10)
DX: I26.99 Other pulmonary embolism without acute cor pulmonale (principal); J18.8 Other pneumonia, unspecified organism; J90 Pleural effusion, not elsewhere classified; C79.31 Secondary malignant neoplasm of brain; C34.90 Malignant neoplasm of unspecified part of unspecified bronchus or lung; R60.9 Edema, unspecified; E78.5 Hyperlipidemia, unspecified; I10 Essential (primary) hypertension; Z87.891 Personal history of nicotine dependence; Z92.3 Personal history of irradiation; Z80.1 Family history of malignant neoplasm of trachea, bronchus and lung; Z80.0 Family history of malignant neoplasm of digestive organs; Z86.711 Personal history of pulmonary embolism; Z82.49 Family history of ischemic heart disease and other diseases of the circulatory system
CPT/HCPCS: 36415; 71010; 71020; 80053; 81003; 82550; 82553; 83605; 83735; 83880; 84145; 84484; 85025; 85610; 85730; 86140; 87040; 87070; 87205; 87502; 87899; 89051; 93005; 93306; 99223; 99232; A9270-GY; J0456; J0697; J1650; J2270; J3480; J8540

== ENCOUNTER 2017-07-10 12:28 | Day surgery (SDC) | payer SELFPAY ==
[~2017-07-10 12:28] MED LIST: Buffered Lidocaine 0.9% SYRIN* 5 ML/SYR SYRINGE INTRADERM ONE; Famotidine IV* 10 MG/ML 2 ML (20 mg) IV ONE; Metoclopramide TAB* 10 MG PO ONE
[2017-07-10] MEDS ORDERED: Metoclopramide TAB* 10 MG ONE (12:42)
[2017-07-10] MEDS ORDERED: ceFAZolin 2 GM PREMIX (*) 2 GM/50 ML BAG IVPB ONE (12:42)
[2017-07-10] MEDS ORDERED: Famotidine IV* 10 MG/ML 2 ML (20 mg) ONE (12:42)
[2017-07-10] MEDS ORDERED: Buffered Lidocaine 0.9% SYRIN* 5 ML/SYR SYRINGE ONE (12:42)
[2017-07-10] MEDS ORDERED: Lidocaine 2% PF * 5 ML VIAL ONE (13:30)
[2017-07-10] MEDS ORDERED: Dexamethasone IV* 4 MG/ML 1 ML (4 MG) ONE (13:30)
[2017-07-10] MEDS ORDERED: Propofol* 10 MG/ML 20 ML BTL IV PUSH ONE (13:30)
[2017-07-10] MEDS ORDERED: Ondansetron INJ* 2 MG/ML VIAL ONE (13:30)
[2017-07-10] MEDS ORDERED: Midazolam* 1 MG/ML 5 ML VIAL (5 MG) ONE (13:31)
[2017-07-10] MEDS ORDERED: fentaNYL* 50 MCG/ML 2 ML VIAL (100 MCG VIAL) ONE (13:31)
[2017-07-10] MEDS ORDERED: Lidocaine 1% INJ* 10 MG/ML 30 ML SDV ONE (13:43)
[2017-07-10] MEDS ORDERED: Midazolam* 1 MG/ML 2 ML VIAL (2 MG) ONE (14:18)
[2017-07-10] MEDS ORDERED: oxyCODONE/Acetamin 5/325 MG* TAB PO PRN ×2 (14:49→15:02)
[2017-07-10] MEDS ORDERED: fentaNYL* 50 MCG/ML 2 ML VIAL (100 MCG VIAL) IV PRN (14:49)
[2017-07-10] MEDS ORDERED: Ondansetron INJ* 2 MG/ML VIAL IV PRN (14:49)
--- NOTE | 2017-07-10 15:12 | SURGPN ---
Brief Operative Note - Surgery Procedures: PRE/POSTOP DX: LUNG CA PROC: POWERPORT PLACEMENT SURG: MECENAS ANES: LOCAL/MAC; TOAL EBL: MIN IVF: LR SPEC: NONE DRAIN/COMPL: NONE COND: STABLE TO RR. FINDINGS: 8 FR POWERPORT PLACED VIA LEFT SUBCLAVIAN APPROACH WITHOUT DIFFICULTY.
[2017-07-10 15:51] VITALS: BP 116/89
--- NOTE | 2017-07-10 16:45 | RAD ---
INDICATION: Power port catheter placement. COMPARISON: Comparison is made with a prior chest x-ray study from June 10, 2017. TECHNIQUE: 12.9 seconds of intermittent fluoroscopic guidance were provided and 5 spot films of the chest were obtained in the operating room. FINDINGS: The films demonstrate placement of a PowerPort central venous catheter entering on the left side. The catheter tip projects over the right atrium. IMPRESSION: INTRAOPERATIVE CONTROL FILMS. CPT II Codes: 6045F
--- NOTE | 2017-07-10 23:04 | OP ---
CC: Ozzie Harmon MD * DATE OF OPERATION: 07/10/17 - [facility] DATE OF : 58 SURGEON: Yonas Helton MD. CLAIMS ANALYST: None. ANESTHESIOLOGIST: Dr. Deon Velasquez. ANESTHESIA: Local MAC. PRE-OP DIAGNOSIS: Lung carcinoma. POST-OP DIAGNOSIS: Lung carcinoma. OPERATIVE PROCEDURE: PowerPort placement via left subclavian vein. ESTIMATED BLOOD LOSS: Minimal. IV FLUIDS: Crystalloid. SPECIMENS: None. DRAINS: None. COMPLICATIONS: None. COUNTS: Instrument, needle, and sponge counts were correct. DESCRIPTION OF PROCEDURE: The patient was brought to the operating room and placed on the table supine. Sequential compression devices were placed on both lower extremities. Intravenous sedation was administered and the patient was prepped and draped in the usual sterile fashion and a time-out was performed. He received appropriate intravenous antibiotics. Local anesthetic was infiltrated for a left subclavian approach. The left subclavian vein was accessed with first pass on the needle. A guidewire was inserted under fluoroscopic guidance into the superior vena cava. The additional anesthetic was infiltrated into the area of the proposed pocket site. A transverse incision was then made in the upper left chest and subcutaneous flap was raised inferiorly. A counter incision was made at the guidewire insertion site, and then the 8-[place] PowerPort was back tunneled to the pocket. The peel-away sheath and dilator were advanced under fluoroscopic guidance to the superior vena cava. The guidewire and dilator were removed and the catheter was advanced into its position at the atriocaval junction. The catheter was cut to an appropriate length and connected to the PowerPort. The port was accessed. It was drawn and flushed easily. The port was sutured into the pocket with a 2-0 Prolene suture. The pocket was closed with interrupted 3- 0 Vicryl for the subcutaneous tissues and 4-0 Monocryl in a running subcuticular fashion. 4-0 Monocryl was used for the counter incision as well. Steri-Strips were applied at the two sites and then a PowerPort needle was used to access the port. It was flushed with heparinized saline. The needle was left in place and Tegaderm dressings were placed over the top. The patient tolerated the procedure well. He was transferred to Recovery in stable condition. [id number]/[facility] #: [id number] [facility]
== END 2017-07-10 16:02 | disposition home or self-care (01) ==
LOC: OR 12:28
PROVIDERS: ATTEND Surgery
DX: C34.31 Malignant neoplasm of lower lobe, right bronchus or lung (principal); C79.31 Secondary malignant neoplasm of brain; K21.9 Gastro-esophageal reflux disease without esophagitis; I26.99 Other pulmonary embolism without acute cor pulmonale; Z87.891 Personal history of nicotine dependence; Z79.01 Long term (current) use of anticoagulants
CPT/HCPCS: 71010; A9270-GY; C1788; J0690; J1100; J1642; J2001; J2250; J2405; J2704; J3010

== ENCOUNTER 2017-07-19 11:21 | Emergency (ER) | payer MEDICAID ==
[2017-07-19] MEDS ORDERED: NS 0.9% 1000 ML* 1,000 ML IV ONE (12:06)
[2017-07-19] MEDS ORDERED: Vancomycin(*) 1,250 MG in NS 0.9% 250 ML* 250 ML IVPB ONE (12:06)
[2017-07-19] MEDS ORDERED: Albuterol/Ipratropium NEB.SOL* Albuterol 2.5 MG/Ipratropium 0.5 MG 3 ML INH ONE (12:06)
[2017-07-19] MEDS ORDERED: Cefepime(*) 1 GM in NS 0.9% 50 ML* 50 ML IVPB ONE (12:06)
[2017-07-19] MEDS ORDERED: Acetaminophen TAB* 325 MG PO ONE (12:15)
[2017-07-19] MEDS ORDERED: Hydrocortisone INJ* 100 MG VIAL IV ONE (12:16)
[2017-07-19] MEDS ORDERED: NS 0.9% 1000 ML* 2,000 ML IV ONE (12:16)
[2017-07-19 13:02] LABS: Hematocrit 36 % (42-52); Hemoglobin 12.7 g/dl (14.0-18.0); Mean Corpuscular HGB Conc 36 g/dl (31-36); Mean Corpuscular Hemoglobin 33 pg (27-31); Mean Corpuscular Volume 93 fL (80-94); Mean Platelet Volume 7 um3 (7.4-10.4); Red Blood Count 3.86 10^6/ul (4.0-5.4); Red Cell Distribution Width 18 % (10.5-15); White Blood Count 7.4 10^3/ul (3.5-10.8)
[2017-07-19 13:07] LABS: Add Diff/Slide Review? Slide Review Added; Comments Flag Yes
--- NOTE | 2017-07-19 13:11 | RAD ---
Indication: Shortness of breath. 2 views of the chest demonstrates central catheter in place with the tip in the superior vena cava. No pneumothorax is noted. Cardiomegaly is noted. IMPRESSION: Port appears to be in satisfactory location with no evidence of pneumothorax.
[2017-07-19 13:23] LABS: Albumin 3.4 g/dL (3.2-5.2); BUN/Creatinine Ratio 28.8 (8-20); Calcium 8.7 mg/dL (8.6-10.3); EGFR African American 209.9 (>60); EGFR Non-African American 163.2 (>60); Globulin 2.4 g/dL (2-4); Potassium 3.2 mmol/L (3.5-5.0); Total Bilirubin 0.6 mg/dL (0.2-1.0); Total Protein 5.8 g/dL (6.4-8.9)
[2017-07-19 13:24] LABS: Troponin I 0.01 ng/mL (<0.04)
[2017-07-19] MEDS ORDERED: Iohexol 350* (CONTRAST) 500 ML MDV IV ONE (14:26)
[2017-07-19] MEDS ORDERED: Potassium Chlor TAB* 20 MEQ TAB.ER PO ONE (14:58)
--- NOTE | 2017-07-19 16:20 | RAD ---
INDICATION: Chest pain, shortness of breath. Assess for PE. History of lung carcinoma. COMPARISON: July 19, 2017 chest radiograph. June 09, [address], May 02, [address] TECHNIQUE: Multidetector CT images were obtained from the lung apices to the ischial tuberosities with 79 mL Omnipaque 350 IV contrast. No oral contrast administered. CHEST REPORT: Moderate emphysema. Near complete atelectasis of the RIGHT lower lobe with partial sparing of the lateral and anterior basal segments. Partial atelectasis of the inferior lingula and basilar segments of the LEFT lower lobe. A few small pulmonary nodules are visualized without significant interval change. Reference image 24, 5 mm subpleural nodule at the lingula is unchanged. Reference image 36, 6 mm subpleural nodule at the anteromedial basal segment of the LEFT lower lobe is unchanged. Trace dependent RIGHT pleural effusion without gross change. Negative for thoracic lymphadenopathy, cardiomegaly, or pericardial effusion. Normal diameter thoracic aorta with mild atherosclerotic plaque. No filling defects are identified from the main to the subsegmental pulmonary arteries to indicate presence of a pulmonary embolism. Negative for suspicious thoracic osseous lesions. CHEST IMPRESSION: 1. Negative for pulmonary embolism. 2. Significant partial atelectasis of the RIGHT lower lobe without significant change. RIGHT lower lobe endobronchial or perihilar mass not excluded. The appearance is without gross change. 3. Unchanged small pulmonary nodules. 4. Negative for thoracic lymphadenopathy. ABDOMEN PELVIS REPORT: The liver, gallbladder, pancreas, and spleen are unremarkable. Negative for CT abnormality of the upper GI, small bowel, or medially extending appendix. Redundant sigmoid colon. No acute pathologic finding of the colon. Negative for ascites or free air. Small fat-containing umbilical hernia without inflammatory change. Normal adrenal glands. Unremarkable kidneys with symmetric nephrograms and pyelograms. Unremarkable nondilated ureters and distended urinary bladder. Symmetric seminal vesicles. Negative for lymphadenopathy. Minimal atherosclerotic plaque of normal diameter abdominal aorta and iliac arteries. Physiologic distention of the IVC. Osteoblastic lesion most consistent with metastasis at the T12 vertebral body without visualized periosseous extension or associated pathologic fracture is unchanged. Suggestion of a smaller osteoblastic metastasis at the anterior margin of the LEFT iliac bone adjacent to the sacroiliac joint without change. No additional suspicious osseous lesions evident. ABDOMEN PELVIS IMPRESSION: 1. No acute abdominal pelvic visceral process or evidence for visceral metastasis or lymphadenopathy. 2. No significant change in probable osteoblastic bone metastasis at T12 and the LEFT iliac bone..
[2017-07-19 17:54] LABS: Urine Bilirubin Negative (Negative); Urine Glucose Negative (Negative); Urine Nitrite Negative (Negative)
[2017-07-19 18:52] VITALS: BP 98/78
--- NOTE | 2017-07-19 19:00 | ED ---
Steffi Galaviz Gabriel, scribed for Vito Mathews MD on 07/19/17 at 1201 . Shortness of Breath - HPI Summary HPI Summary: This patient is a 57 year old M BIBA to [facility] accompanied by daughter in law ( health care proxy) with a chief complaint of SOB since the last few days. 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 He had a PE a month ago and a port placement 9 days ago for daily Lovenox injections for prevention (once a day).Patient reports productive cough, right low chest and flank pain, and chills. Patient denies dizziness.Patient states the feeling is similar to his last PE. - History of Current Complaint Chief Complaint: EDShortnessOfBreath Time Seen by Provider: 07/19/17 11:50 Hx Obtained From: Patient, Family/S[employer] Project Manager - daughter in law Onset/Duration: Resolved - sponatenous Current Severity: None Related History: Similar Episode - compares the pain to the prior PE - Allergy/Home Medications Allergies/Adverse Reactions: Allergies Allergy/AdvReac Type Severity Reaction Status Date / Time No Known Allergies Allergy Verified 07/10/17 12:55 Home Medications: Home Medications Memantine TAB* [Namenda TAB*] 10 mg PO BID 07/19/17 [History Confirmed 07/19/17] oxyCODONE TAB* [Roxycodone TAB 5 mg*] 10 mg PO Q4H PRN 07/19/17 [History Confirmed 07/19/17] PMH/Surg Hx/FS Hx/Imm Hx Previously Healthy: No Endocrine/Hematology History: Denies: Hx Diabetes Cardiovascular History: Reports: Other Cardiovascular Problems/Disorders - HLD, PE Denies: Hx Hypertension, Hx Pacemaker/ICD Respiratory History: Reports: Hx Pneumonia - possible 06/10/17, Hx Pulmonary Edema, Hx Pulmonary Embolism, Other Respiratory Problems/Disorders - lung ca, collapsed lung GI History: Reports: Hx Gastroesophageal Reflux Disease History: Denies: Hx Renal Disease Sensory History: Denies: Hx Cataracts, Hx Contacts or Glasses, Hx Hearing Aid Opthamlomology History: Denies: Hx Cataracts, Hx Contacts or Glasses Neurological History: Reports: Other Neuro Impairments/Disorders - mets on keppra Psychiatric History: Reports: Hx Anxiety - r/t cancer Denies: Hx Panic Disorder - Cancer History Cancer Type, Location and Year: BRAIN CANCER. STAGE 4 LUNG CANCER Hx Chemotherapy: No Hx Radiation Therapy: Yes - Surgical History Surgery Procedure, Year, and Place: 05/07/17 BRONCHOSCOPY - WITH BIOPSY Hx Anesthesia Reactions: No Infectious Disease History: No Infectious Disease History: Reports: Hx Hepatitis - as a child in [place] Denies: Traveled Outside the [place] in Last 30 Days - Family History Known Family History: Positive: Hypertension - Social History Occupation: Employed Full-time - has not worked since [place] Dx Alcohol Use: Daily Alcohol Amount: few beers a day Hx Substance Use: No Substance Use Type: Reports: None Hx Tobacco Use: Yes Smoking Status (MU): Former Smoker Type: Cigarettes Amount Used/How Often: 1 PACK/DAY Have You Smoked in the Last Year: No Review of Systems Negative: Chest Pain - right lower CP with radiaton into flank Positive: Shortness Of Breath, Cough - productive Neurological: Negative - dizziness All Other Systems Reviewed And Are Negative: Yes Physical Exam Triage Information Reviewed: Yes Vital Signs On Initial Exam: Initial Vitals Temp Pulse Resp BP Pulse Ox 100.4 F 106 20 113/51 93 07/19/17 11:25 07/19/17 11:25 07/19/17 11:25 07/19/17 11:25 07/19/17 11:25 Vital Signs Reviewed: Yes Appearance: Positive: Well-Appearing, No Pain Distress Skin: Positive: Warm, Other - there is a port in the left upper chest. No drainage from around the site and no redness and no tenderness. The port is one week old per the patient Head/Face: Positive: Normal Head/Face Inspection Respiratory/Lung Sounds: Positive: Wheezes - bilateral faint with decreased bs in bases Cardiovascular: Positive: Tachycardia. Negative: Murmur Abdomen Description: Positive: Nontender Musculoskeletal: Positive: Strength/ROM Intact Neurological: Positive: Sensory/Motor Intact, Alert, Oriented to Person Place, Time, CN Intact II-III Psychiatric: Positive: Normal - Shelli Coma Scale Coma Scale Total: 15 Diagnostics - Vital Signs Vital Signs Temp Pulse Resp BP Pulse Ox 07/19/17 11:46 97.7 F 07/19/17 11:25 100.4 F 106 20 113/51 93 - Laboratory Result Diagrams: 07/19/17 12:45 07/19/17 12:45 Lab Statement: Any lab studies that have been ordered have been reviewed, and results considered in the medical decision making process. - Radiology CXR Radiology Interpretation Completed By: Radiologist - Port appears to be in satisfactory location with no evidence of pneumothorax. ED physician has reviewed this radiology report and agrees. - CT CT ABD/Pelvis CT Interpretation Completed By: Radiologist - 1. No acute abdominal pelvic visceral process or evidence for visceral metastasis or lymphadenopathy. 2. No significant change in probable osteoblastic bone metastasis at T12 and the LEFT iliac bone. ED physician has reviewed this radiology report and agrees. - EKG 13:04 Cardiac Rate: NL EKG Rhythm: Sinus Rhythm - 79 BPM EKG Interpretation: Normal FL, QRS, No STEMI Re-Evaluation - Re-Evaluation First Eval Re-Evaluation Time: 18:59 Change: Improved Comment: The patient states he feels much better now. He states his BP is usually between 90-100 systolic, and that his bp being like this is not unusual. He feels good. DC home. Course/Dx - Course Course Of Treatment: 57 yr old with no focus of infection on work up. He is on lovenox. He has neg CTA chest abd pelv. Labs look ok. DC to home in stable condition. Fu with his doctors in oncology - Diagnoses Provider Diagnoses: Lung cancer, Shortness of breath, Pneumonia Discharge - Discharge Plan Condition: Good Disposition: HOME Prescriptions: Amoxicillin/Clavulanate TAB* [Augmentin TAB 875*] 875 mg PO BID #20 tab Azithromycin TAB* [Zithromax TAB (Z-YOKASTA) 250 mg #6 tabs] 2 tab PO .TODAY, THEN 1 DAILY #1 yokasta Patient Education Materials: Dyspnea (ED), Pneumonia (ED), Non-Small Cell Lung Cancer (ED) Referrals: Ozzie Harmon MD [Primary Care Provider] - 3 Days The documentation as recorded by the Steffi ken Gabriel accurately reflects the service I personally performed and the decisions made by me, Vito Mathews MD.
== END 2017-07-19 18:26 | disposition home or self-care (01) ==
LOC: ED 11:21
DX: J18.9 Pneumonia, unspecified organism (principal); R06.02 Shortness of breath; C34.90 Malignant neoplasm of unspecified part of unspecified bronchus or lung; C79.31 Secondary malignant neoplasm of brain; E78.5 Hyperlipidemia, unspecified; Z86.711 Personal history of pulmonary embolism; K21.9 Gastro-esophageal reflux disease without esophagitis; F41.9 Anxiety disorder, unspecified
CPT/HCPCS: 36415; 71020; 71275; 74177; 80053; 81003; 83605; 83880; 84484; 85025; 85610; 85730; 87040; 87502; 93005; 94640; 96360; 96374; 96375; 99285; A9270-GY; J0692; J1642; J1720; J3370; Q9967